=== PATIENT | female | born 1995 | race Caucasian/White ===

== ENCOUNTER 2017-07-30 12:48 | Emergency (ER) | payer MEDICAID, SELFPAY ==
[2017-07-30 12:48] VITALS: BP 135/76; PULSE 117; RESP 14; TEMP 36.7; O2SAT 99; BMI 31.2
--- NOTE | 2017-07-30 13:11 | ED.DCSUM_ITS ---
- ER Visit Summary Date of Service: 07/30/17 Chief Complaint: [Facial pain] History of Present Illness: The patient is a 22 F [presents with right-sided facial pain ?2 days. Patient denies any trauma. Patient states the pain is exacerbated by eating or chewing. Patient states that it is in her jaw and kind of radiates into her neck at times. She feels that in her mouth where the upper and lower teeth come together in the gingiva come together. Patient states she has had her wisdom teeth extracted. She has not had any fever. No rashes. Denies sore throat or ear pain.] Physical Examination: [HEENT-PERRLA, EOMI. Cranial nerves II through XII grossly intact. TMs clear. Mucous membranes moist. No adenopathy. No pharyngeal erythema. No trismus on exam. No real tenderness over her molars. Patient has some tenderness on palpation of the posterior gingiva at the angle where the upper pole and jaw comes together that seems to reproduce her pain. There is no erythema or fluctuance noted of the gingiva. There is no facial cellulitis. No adenopathy. No real tenderness over the parotid gland or sublingual gland. Cardiovascular-regular rate and rhythm without murmur or ectopy Lungs-clear to auscultation, chest wall stable without crepitus or subcu emphysema Abdomen-normoactive bowel sounds, soft, nontender, no rebound or rigidity, no peritoneal signs. Extremities-intact ?4, normal range of motion, normal pulses, atraumatic] Test Results: [None indicated] Emergency Department Course and Treatment: [Patient will be started clindamycin and [place] for pain] Treatment Plan: [Patient advised to follow-up with the dentist. Patient states that she called her dentist and she can get in for 2 months. I will give the patient a list of dentists in the area.] Disposition: [Discharged home in stable condition] Impression: [Facial pain-etiology uncertain] This note was generated with [employer] software. It may contain incorrect words, spelling, and punctuation that were not noted in review of the chart prior to signing ED Disposition - Plan for ED Patient: Chief Complaint: Other, Pain/Inj Referrals: Migdalia Holden MD [Primary Care Provider] -
--- NOTE | 2017-07-30 13:13 | DCINST.ED_ITS ---
ED Disposition - Plan for ED Patient: Chief Complaint: Other, Pain/Inj Instructions: ED Tooth Pain Prescriptions: Hydrocodone Bitart/Apap 5-325 [[place] 5/325] 1 - 2 tab PO Q4H PRN PRN 5 Days #20 tab PRN Reason: Pain Clindamycin HCl [Cleocin] 300 mg PO Q6H #40 cap Referrals: Migdalia Holden MD [Primary Care Provider] - 3-5 Days Additional Instructions: see a dentist
== END 2017-07-30 13:30 | disposition home or self-care (01) ==
PROVIDERS: Emergency Provider Emergency Medicine
DX: R51 Headache (principal); J45.909 Unspecified asthma, uncomplicated
CPT/HCPCS: 99282

== ENCOUNTER → 2017-09-14 14:31 | Outpatient (CLI) | payer MEDICAID, SELFPAY ==
[2017-09-21 15:51] LABS: HPV Reflexed? NOT INDICATED
== END ==
PROVIDERS: Visit Provider Obstetrics & Gynecology
DX: Z12.4 Encounter for screening for malignant neoplasm of cervix (principal)
CPT/HCPCS: 88175; G0145

== ENCOUNTER → 2018-01-18 16:49 | Outpatient (CLI) | payer MEDICAID, SELFPAY ==
[2018-01-25 14:40] LABS: HPV Reflexed? NOT INDICATED
== END ==
PROVIDERS: Visit Provider Obstetrics & Gynecology
DX: Z12.4 Encounter for screening for malignant neoplasm of cervix (principal)
CPT/HCPCS: 88175; G0145

== ENCOUNTER 2018-02-16 06:58 | Day surgery (SDC) | payer MEDICAID, SELFPAY ==
[2018-02-15 17:22] LABS: Hematocrit 40.1 % (37-47); Hemoglobin 12.7 g/dl (12.0-15.0); Mean Corp Hgb Conc 31.7 g/gl (32-36); Mean Corpuscular Hgb 24.7 pg (27.0-32.0); Mean Platelet Vol. 8.9 fl (6.2-12.0); Platelet Count 320 K/mm3 (150-450); RBC Distribution Width CV 13.5 % (11.6-14.6); RBC Distribution Width SD 38.1 fl (35.1-43.9); Red Blood Count 5.14 M/mm3 (4.2-5.4); White Blood Count 9.9 K/mm3 (4.4-11.0)
[2018-02-15 17:23] LABS: Partial Thromboplast Time 30.6 Seconds (24.1-36.2); Prothrombin Time (Protime)PT. 13.2 SECONDS (11.7-14.9)
[2018-02-15 17:33] LABS: Scan Indicated on CBC? Y/N NO
[2018-02-15 17:48] LABS: Pregnancy, Serum, hCG Quali. NEGATIVE Negative (0-9 Nonpreg)
--- NOTE | 2018-02-16 | FALS_PTH ---
PATIENT: CATRACHO FREED [place] [facility] [id number] AGE/SX: 22/F ROOM: RE02/16/[address]: Dr. Tristan El MD : 1995 BED: DIS: 02/16/2018 SPEC #: [id number] RECD: 02/16/18 14:55 STATUS: YELENA RESaumya #: [id number] MATEO: 02/16/18 00:[address]: Tristan El DEPT: SURGICAL PATHOLOGY RECD BY: Ariel Gómez ENTERED: 02/16/18 14:55 SP TYPE: FALL TUBES OTHR DR: No Primary Care Phys Tissues: Fallopian tube Procedures: Surgery Specimen Level II HEADER OPERATION: Laparoscopic salpingectomy, bilateral PRE-OP DIAGNOSIS: Request sterilization TISSUE SUBMITTED: Right and left fallopian tube MICROSCOPIC DIAGNOSIS Right and left fallopian tubes, salpingectomies: Two complete segments of fallopian tubes with no pathologic change. AM:kang 02/17/18 MICROSCOPIC DESCRIPTION Slides are reviewed. GROSS DESCRIPTION Received is one container labeled with the patient's name and designated bilateral fallopian tubes. The specimen consists of two tubular pieces of pink-hdz soft tissue with the right identified with a suture. The average length is 4.5 cm and average diameter is 0.5 cm. No mass lesion. The entire specimen is submitted in two cassettes as follows: 1 - one fallopian tube, 2 - the other fallopian tube. / AM:kang 02/16/18 TC: Samantha CPT: 62072 x2
[2018-02-16 07:23] VITALS: BP 117/76; PULSE 76; RESP 16; TEMP 36.8; O2SAT 99; BMI 33.4
--- NOTE | 2018-02-16 08:44 | DCINST_ITS ---
You will use the following diet at home:: No restrictions Your food should be the consistency of: Regular Discharge Activity: Return to Normal Activity, May Drive, May not drive while taking narcotic pain medications., May Shower Return to work on:: 02/21/18 May shower in (days): 0 May resume sexual activity in: 1-2 weeks Lifting Restrictions: 25 pounds for two weeks then no restrictions Call your doctor if your incision/area has: Sudden Increased Bleeding, Increased Pain/ Swelling, Increased Redness, Foul Smelling Discharge, Swelling at the incision site Call your doctor if you observe: Fever of 101 or Higher, Inability to urinate, Inability to have a bowel movement, Using more than one pad per hour, Shortness of breath, Chest pain, Calf discomfort, Uncontrolled pain Remove Dressing in (days):: 2 Cleanse incision/area with: Soap & Water Allergies/Adverse Reactions: Allergies amoxicillin Allergy (Verified 02/16/18 07:22) Rash clavulanic acid [From Augmentin] Allergy (Verified 02/16/18 07:22) Rash Penicillins Allergy (Verified 02/16/18 07:22) Rash vancomycin Allergy (Verified 02/16/18 07:22) Hives Medications to take at Discharge Albuterol IH (ProAir) [Proair Hfa] 2 puff INHALATION Q4H PRN PRN 05/28/16 Ibuprofen 600 mg PO 4X/DAY #30 tab 02/16/18 Oxycodone [Oxyir] 5 mg PO Q6H PRN PRN 7 Days #20 tab 02/16/18 The following prescriptions were given: Oxycodone [Oxyir] 5 mg PO Q6H PRN PRN 7 Days #20 tab PRN Reason: Severe Pain (6-01/12) Ibuprofen 600 mg PO 4X/DAY #30 tab Orders to be completed after discharge: ,Urine Time Frame: 02/16/18, Location: Laboratory Primary Care Physician: Care Physician,No Primary [Primary Care Provider] - Test Results: Test results from this visit will be discussed in further detail at your follow- up appointment, if applicable. Please Follow Up With: Tristan El MD When: one week Proposed Discharge Date: 02/16/18
[2018-02-16] MEDS: Bupivacaine Mpf 0.5% 30 ML VIAL (09:15)
--- NOTE | 2018-02-16 09:17 | PCM.OPRPT ---
Report of Operation Date of Procedure: 02/16/18 Pre-Operative Diagnosis: Requests permanent sterilization Post-Operative Diagnosis: Same Surgery/Procedure Performed:: Laparoscopic Bilateral Salpingectomy Description of Surgical Findings:: Normal appearing uterus, ovaries, and fallopian tubes. Normal appearing liver, gallbladder and stomach. Appendix not visualized. membership coordinator: None Type of Anesthesia:: General Anesthesiologist: Guru De Jesus Special Medications: none Specimen's removed: Right and left fallopian tubes Drains: none Estimated Blood Loss (mL): minimal Fluids Replaced: 1000cc LR Description of Procedure: Gloria reconfirmed desire for permanent sterilization prior to being taken to the OR. She was taken to the OR with IV running. She was given intravenous clindamycin and gentamicin for surgical prophylaxis prior to the procedure. General anesthesia was introduced without complication. SHe was then prepped and draped in the dorsal lithotomy position. A red rubber catheter was used to drain the bladder. A Cyndie uterine manipulator was placed. Attention was then directed to the abdomen. A 5 mm vertical incision was made in the lower base of the umbilicus. The underlying subcutaneous tissue was dissected down to the level of fascia with blunt dissection with a Magalie clamp. The abdominal wall was then elevated and a Veress needle was placed through the umbilical defect into the abdomen. The abdomen was then inflated with CO2 gas to a pressure o 15 Torr. The Veress needle was removed and a 5mm laparoscopic trocar and sleeve were placed. The trocar was removed and replaced with the laparoscope. Findings were as mentioned above. A second 5mm port was placed on the left side at the level of the umbilicus lateral to the inferior epigastric vessels. A laparoscopic mini alligator grasper was placed in the midline between the umbilicus and the pubic symphysis. Hemostasis was excellent after port placement, The Left fallopian tube was then grasped at the fimbriated e4nd and elevated. The mesosalpinx was then dissected from the distal end to the cornua of the uterus using the Ligasure device. The tube was then amputated at the cornua. The tube was removed through the left port. The right fallopian tube was then dissected in a similar manner. Hemostasis was ecellent after tubal removal. The ports were then removed and the alligator grasper removed. The CO2 gas was evaluated. The skin incisions were closed with a subcuticular stitch of 4-0 Monocryl suture. The port sites were injected with 0.5% Marcaine. The uterine manipulator was removed. SHe was reversed from anesthesia and taken to the recovery room in stable condition. Sponge, needle, and instrument counts were correct. Grafts/Implants Used: none - Complications none - Admit VTE Documentation VTE Present on Admission: No VTE Mechan Device Prophylaxis: SCD's VTE Pharm Prophylaxis ordered?: No
[2018-02-16 09:32] VITALS: BP 117/76; BP 122/74; PULSE 85; RESP 16; TEMP 36.9; O2SAT 94
[2018-02-16 09:45] VITALS: BP 109/64; BP 117/76; PULSE 74; RESP 16; O2SAT 98
[2018-02-16 10:00] VITALS: BP 111/65; BP 117/76; PULSE 71; RESP 16; TEMP 36.7; O2SAT 98
[2018-02-16 10:40] VITALS: BP 117/76; BP 99/66; PULSE 74; RESP 16; TEMP 36.7; O2SAT 100
== END 2018-02-16 11:02 | disposition home or self-care (01) ==
LOC: SDC 06:59 → AC 06:59
PROVIDERS: Referring Provider Obstetrics & Gynecology; Visit Provider Obstetrics & Gynecology
PROC: (CPT 58661; principal; 2018-02-16 08:15)
DX: Z30.2 Encounter for sterilization (principal); J45.909 Unspecified asthma, uncomplicated; K21.9 Gastro-esophageal reflux disease without esophagitis; F17.210 Nicotine dependence, cigarettes, uncomplicated
CPT/HCPCS: 00840; 58661; 36415; 84703; 85027; 85610; 85730; 86850; 86900; 88302; J7120; J2405

== ENCOUNTER 2018-05-23 10:14 | Emergency (ER) | payer MEDICAID, SELFPAY ==
[2018-05-23 10:15] VITALS: BP 132/79; PULSE 95; RESP 16; TEMP 36.7; O2SAT 98; BMI 34.5
--- NOTE | 2018-05-23 10:50 | ED.VISSUMM ---
- ER Visit Summary Date of Service: 05/23/18 Chief Complaint: Heavy vaginal bleeding History of Present Illness: The patient is a 22 F who presents for heavy vaginal bleeding and cramping since yesterday. Patient states that she thinks she is on her period, which started yesterday. She has been having very heavy bleeding, going through one tampon per hour. She feels like she is in labor with severe lower abdominal and lower back cramping. She is feeling dizzy when she stands up. Her last period was 1 month ago and was heavy, but not this heavy. She had her Nexplanon taken out in March and had bilateral salpingectomy. She denies any fever, urinary symptoms or other complaints at this time. Physical Examination: Vital signs: afebrile, hemodynamically stable, no hypoxia on room air General: well nourished, well developed, in no distress Skin: warm, dry, no rash, no pallor HEENT: normocephalic and atraumatic; PERRL, EOMI, moist mucous membranes Cardiovascular: regular rate and rhythm without murmurs, no peripheral edema, 2+ pulses all distal extremities Respiratory: No increased work of breathing, lungs are clear to auscultation bilaterally, no rales, rhonchi or wheezing Abdominal: Abdomen is soft, nontender with normoactive bowel sounds, no guarding or rebound, no masses no lower back tenderness, no pelvic tenderness MSK: Moves all extremities, no deformities, normal strength Neuro: Awake and alert, oriented ?4. No facial droop, sensation and motor function intact and symmetric Test Results: Abnormal Lab Results 05/23/18 05/23/18 10:55 10:55 WBC 8.9 RBC 4.96 Hgb 12.4 Hct 38.7 MCV 78.0 L MCH 25.0 L MCHC 32.0 RDW 13.2 RDW Differential 37.3 Plt Count 329 MPV 8.4 Immature Gran % (Auto) 0.200 Neut % (Auto) 59.5 Lymph % (Auto) 31.2 [place] % (Auto) 6.1 Eos % (Auto) 2.4 Baso % (Auto) 0.6 Absolute Neuts (auto) 5.3 Absolute Lymphs (auto) 2.78 Total Counted Not Reportable Serum , Qual NEGATIVE Medications Given Discontinued Medications Sodium Chloride () 1,000 mls @ 999 mls/hr IV .Q1H1M ONE Stop: 05/23/18 11:52 Last Admin: 05/23/18 11:17 Dose: 999 mls/hr Ketorolac Tromethamine (Toradol) 15 mg IV X1 ONE Stop: 05/23/18 10:50 Last Admin: 05/23/18 11:17 Dose: 15 mg Emergency Department Course and Treatment: Because patient is complaining of dizziness when standing up, she was given IV fluids. She was given Toradol for her cramping pain. was checked and was negative. CBC checked and patient had a normal hemoglobin, unchanged from her baseline compared to other labs. Pelvic exam performed, and it time, patient still had a tampon in. She removed it. On exam there was a scant amount of old blood noted at the cervical os. No cervical motion tenderness or adnexal masses. No vaginal lacerations or other lesions noted. Patient's heavy bleeding and cramping is most likely related to her normal menstrual period, as her body is reacclimate eating after having removal of the Nexplanon. Patient is to follow-up with her maintenance leader if she continues to have any concerns. Patient was discharged home in improved condition. Treatment Plan: [] Disposition: [] Impression: Dysmenorrhea This note was generated with [employer] dictation software. It may contain incorrect words, spelling, and punctuation that were not noted in review of the chart prior to signing ED Disposition - Plan for ED Patient: Disposition: Home or Assisted Living Instructions: ED Cramping Menstrual Referrals: Jignesh Gutierrez MD [Primary Care Provider] - Additional Instructions: Please follow-up with your maintenance leader if you continue to have concerns about your increased cramping and increased bleeding during her menstrual periods. Your is negative. Please continue to use [id number] medication as needed for cramping. If you have any worsening of your condition or any new concerning symptoms, please return immediately to the emergency department for another evaluation.
[2018-05-23 11:06] LABS: Absolute Lymphocyte Count 2.78 X10^3/ul (0.83-4.51); Absolute Neutrophil Count 5.3 X10^3/uL (2.0-7.7); Basophil# 0.05 X10^3/uL; Basophil% 0.6 % (0-1); Eosinophil# 0.21 X10^3/uL; Eosinophils% 2.4 % (0-5); Hematocrit 38.7 % (37-47); Hemoglobin 12.4 g/dl (12.0-15.0); Lymphocyte # 2.78 X10^3/ul (4.0); Lymphocyte % 31.2 % (19-41); Mean Platelet Vol. 8.4 fl (6.2-12.0); Monocyte# 0.54 X10^3/uL; Monocyte% 6.1 % (0-10); Neutrophil % 59.5 % (47-70); Platelet Count 329 K/mm3 (150-450); RBC Distribution Width CV 13.2 % (11.6-14.6); RBC Distribution Width SD 37.3 fl (35.1-43.9); Red Blood Count 4.96 M/mm3 (4.2-5.4); White Blood Count 8.9 K/mm3 (4.4-11.0)
[2018-05-23 11:10] LABS: POSITIVE COUNT NO; POSITIVE DIFFERENTIAL NO; POSITIVE MORPHOLOGY NO
[2018-05-23] MEDS: 0.9% Normal Saline 1,000 ML 999 ML IV (11:17)
[2018-05-23] MEDS: Ketorolac 15 MG/ML Vial IV (11:17)
[2018-05-23 11:44] LABS: Pregnancy, Serum, hCG Quali. NEGATIVE Negative (0-9 Nonpreg)
[2018-05-23 13:05] VITALS: PULSE 76; RESP 16; O2SAT 100
== END 2018-05-23 13:06 | disposition home or self-care (01) ==
PROVIDERS: Emergency Provider Emergency Medicine; Family Provider Family Medicine; PCP Family Medicine
DX: N94.6 Dysmenorrhea, unspecified (principal)
CPT/HCPCS: 84703; 85025; 96361; 96374; 99283; J7030

== ENCOUNTER → 2018-08-11 | Outpatient (CLI) | payer MEDICAID, SELFPAY ==
[2018-08-11 18:14] LABS: Chlamydia Trachomatis by PCR Negative (Negative); Neisserai gonorrhoeae by PCR Negative (Negative); Probe Check PASS; Sample Adequacy Control PASS; Specimen Processing Control PASS
== END | disposition home or self-care (01) ==
PROVIDERS: Visit Provider Obstetrics & Gynecology
DX: Z11.3 Encounter for screening for infections with a predominantly sexual mode of transmission (principal)
CPT/HCPCS: 87491; 87591

== ENCOUNTER → 2019-01-19 13:44 | Outpatient (CLI) | payer MEDICAID, SELFPAY ==
[2019-01-19 17:56] LABS: Chlamydia Trachomatis by PCR Negative (Negative); Neisserai gonorrhoeae by PCR Negative (Negative); Probe Check PASS; Sample Adequacy Control PASS; Specimen Processing Control PASS
[2019-01-24 14:46] LABS: HPV APTIMA, High Risk Negative (Negative)
[2019-01-24 15:06] LABS: HPV Reflexed? YES, CHARGE PATIENT
== END ==
PROVIDERS: Visit Provider Obstetrics & Gynecology
DX: Z12.4 Encounter for screening for malignant neoplasm of cervix (principal); Z11.3 Encounter for screening for infections with a predominantly sexual mode of transmission
CPT/HCPCS: 87491; 87591; 87624; 88175; G0145

== ENCOUNTER 2019-01-23 11:47 | Emergency (ER) | payer MEDICAID, SELFPAY ==
[2019-01-23 11:48] VITALS: BP 114/76; PULSE 84; RESP 16; TEMP 36.6; O2SAT 99; BMI 32.8
--- NOTE | 2019-01-23 12:00 | EKG12_ITS ---
Test Reason : CP/BACK PAIN Blood Pressure : / mmHG Vent. Rate : 052 BPM Atrial Rate : 052 BPM P-R Int : 122 ms QRS Dur : 090 ms QT Int : 400 ms P-R-T Axes : 031 061 068 degrees QTc Int : 372 ms Sinus bradycardia Otherwise normal ECG Confirmed by RUSSELL KUHN, CARLOS A ([id number]), copy editor DOMINGO PATTEN ([id number]) on 01/27/2019 10:29:15 AM Referred By: FLOR Confirmed By:CARLOS A WELLS MD
[2019-01-23 12:06] VITALS: BP 126/86; PULSE 57; RESP 23; O2SAT 100
--- NOTE | 2019-01-23 12:43 | RAD_ITS ---
STUDY: X-RAY CHEST REASON FOR EXAM: Female, 23 years old. Atypical chest pain and back pain. TECHNIQUE: AP and lateral views of the chest. COMPARISON: None. FINDINGS: EKG electrodes are seen. The lungs are clear and expanded. There is no demonstrated pleural abnormality. Normal size heart. Normal mediastinum and stephanie. Normal visualized pulmonary arteries. Normal visualized aortic arch and descending thoracic aorta. Normal visualized thoracic spine. Normal visualized ribs, clavicles, and shoulders. There is no demonstrated abnormality of the visualized soft tissue structures of the upper abdomen. RAD/Chest PA and Lateral IMPRESSION: Normal x-ray examination of the chest. Electronically Signed: Randal Ny, at 13:22 EDT , Service support ,
[2019-01-23] MEDS: diazePAM 5 MG Tablet 10 MG PO (13:16)
[2019-01-23] MEDS: Ketorolac 60 MG/2 ML Vial IM (13:17)
--- NOTE | 2019-01-23 13:19 | ED.DCSUM_ITS ---
- ER Visit Summary Date of Service: 01/23/19 Chief Complaint: Midthoracic back pain History of Present Illness: The patient is a 23 F past medical history of asthma and vocal cord dysfunction. Patient states around 230 this morning she woke up with back pain radiating her chest. She had a similar episode like this before was treated at [facility] for muscle spasms. No history of cardiac disease. No shortness of breath. No hemoptysis. No fever, chills or cough. No abdominal pain. No leg pain or swelling. Physical Examination: Young female no acute distress vital signs stable afebrile. Pulse ox on percent room air no signs of hypoxia. HEENT exam unremarkable. Neck nontender no lymphadenopathy. Lungs clear to auscultation bilaterally. Heart regular rhythm no murmur. Chest wall nontender. Abdomen soft nontender. Patient moving all 4 extremities. Neurovascular intact. Equal symmetrical radial pulses. Calves are nontender without edema or cords. Back exam she is reproducible thoracic and parathoracic bony and soft tissue tenderness consistent with musculoskeletal etiology. There is no redness or warmth. No signs of trauma or bruising. No bony deformity. Neurologically she is awake alert with no focal motor deficits. Test Results: EKG obtained by nursing staff shows a sinus bradycardia rate of 52 with no signs of MS or ischemia. Chest x-ray was performed shows normal cardiac silhouette mediastinum. There are 2 views read both by myself and the radiologist. Emergency Department Course and Treatment: Patient treated with p.o. Valium and IM Toradol. On repeat exam she is improving. We went over her test results. Treatment Plan: Motrin for pain. Valium for muscle relaxant. Shower warm bath. Massage to the area. Follow-up with not improving. Disposition: Discharge Impression: Parathoracic muscle spasm This note was generated with [email or web address] dictation software. It may contain incorrect words, spelling, and punctuation that were not noted in review of the chart prior to signing ED Disposition - Plan for ED Patient: Referrals: Jignesh Gutierrez MD [Primary Care Provider] -
--- NOTE | 2019-01-23 13:22 | ED.DEP ---
ED Disposition - Plan for ED Patient: Disposition: Home or Assisted Living Instructions: BACK SPASM, No Trauma Prescriptions: Diazepam [Valium] 5 mg PO 4X/DAY PRN PRN 7 Days #20 tab PRN Reason: Muscle Spasm Prescription Printed Referrals: Jignesh Gutierrez MD [Primary Care Provider] - 3-5 Days if not improving Additional Instructions: Valium for muscle spasms. Tylenol Motrin for pain. Hot shower warm bath and massage.
[2019-01-23 13:41] VITALS: BP 130/79; PULSE 66; RESP 15; O2SAT 100
== END 2019-01-23 13:42 | disposition home or self-care (01) ==
PROVIDERS: Emergency Provider Emergency Medicine; Family Provider Family Medicine; PCP Family Medicine
DX: M62.830 Muscle spasm of back (principal); M54.9 Dorsalgia, unspecified; J45.909 Unspecified asthma, uncomplicated; J38.3 Other diseases of vocal cords; Z72.0 Tobacco use
CPT/HCPCS: 71046; 93005; 96372; 99283

== ENCOUNTER 2019-03-15 09:02 | Emergency (ER) | payer BC, MEDICAID, SELFPAY ==
[2019-03-15 09:03] VITALS: BP 125/70; PULSE 99; RESP 17; TEMP 36.7; O2SAT 99; BMI 33.5
--- NOTE | 2019-03-15 09:30 | ED.VISSUMM ---
- ER Visit Summary Date of Service: 03/15/19 Chief Complaint: [] History of Present Illness: The patient is a 23 F [] Physical Examination: [] Test Results: [] Emergency Department Course and Treatment: [] Treatment Plan: [] Disposition: [] Impression: [] This note was generated with [employer] dictation software. It may contain incorrect words, spelling, and punctuation that were not noted in review of the chart prior to signing ED Disposition - Plan for ED Patient: Referrals: Jignesh Gutierrez MD [Primary Care Provider] -
--- NOTE | 2019-03-15 09:30 | ED.DEP ---
ED Disposition - Plan for ED Patient: Disposition: Home or Assisted Living Instructions: BACK SPASM, No Trauma Prescriptions: Diazepam [Valium] 5 mg PO Q6H PRN PRN #20 tab PRN Reason: Muscle Spasm Prescription Printed Referrals: Jignesh Gutierrez MD [Primary Care Provider] - 1 Week if not improving Additional Instructions: Hot shower, warm bath, massage. Tylenol and Motrin for pain. Valium as needed as a muscle relaxant. Do not drive or drink alcohol while using the Valium.
== END 2019-03-15 09:49 | disposition home or self-care (01) ==
LOC: ED 09:48
PROVIDERS: Emergency Provider Emergency Medicine; Family Provider Family Medicine; PCP Family Medicine
DX: M62.830 Muscle spasm of back (principal); M54.9 Dorsalgia, unspecified; J45.909 Unspecified asthma, uncomplicated; Z72.0 Tobacco use
CPT/HCPCS: 99281

== ENCOUNTER 2020-10-01 13:54 | Emergency (ER) | payer OTHER, MEDICAID, SELFPAY ==
[2020-10-01 13:55] VITALS: BP 117/72; PULSE 118; RESP 16; TEMP 37.1; O2SAT 98; BMI 36.8
--- NOTE | 2020-10-01 14:43 | ED.VIS.FEGU ---
HPI HPI - Female History of Present Illness Chief Complaint: Vag Bleeding Narrative Narrative: 25-year-old female presenting with pelvic cramping and spotting. She states that she started her menstrual cycle a week early. Patient has no nausea or vomiting. She has no breast pain. Patient previously had her fallopian tubes removed. She states I feel like I am having a miscarriage. Patient is status post salpingectomy bilaterally distantly. She states she is sexually active with a boyfriend. She called her cotton opener who stated she needed to go to the emergency room for an ultrasound and a test. Patient denies fever, chills, change in bowel habits, nausea, vomiting. PFSH PFSH Home Medications diazepam 5 mg PO Q6H PRN PRN #20 tab 03/15/19 [Rx Last Taken Unknown] Allergy/AdvReac Type Severity Reaction Status Date / Time amoxicillin Allergy Rash Verified 10/01/20 13:57 clavulanic acid Allergy Rash Verified 10/01/20 13:57 [From Augmentin] Penicillins Allergy Rash Verified 10/01/20 13:57 vancomycin Allergy Hives Verified 10/01/20 13:57 Surgical History History of salpingectomy Social History Smoking Status: Current every day smoker tobacco type: cigarettes ROS ROS ED Constitutional Constitutional ED: Denies fever(s) or subjective Eyes Eyes: Denies blurry vision or change in vision ENT ENT ED: Denies rhinorrhea or sore throat Cardiovascular Cardiovascular: Denies chest pain or palpitations Respiratory/Chest Respiratory/Chest: Denies cough or dyspnea Gastrointestinal Gastrointestinal: Reports abdominal pain; Denies constipation, diarrhea, nausea or vomiting Genitourinary Genitourinary ED: Denies dysuria or hematuria Musculoskeletal Musculoskeletal: Denies arthralgias or myalgias Integumentary Denies Abrasions or rash Neurologic Neurologic: Denies headache(s) or weakness Psychiatric Psychiatric: Denies anxiety or depression EXAM Physical Exam Const Vital Signs: 10/01/20 13:55 Temperature 98.8 F Temperature Source Temporal Pulse Rate 118 H Respiratory Rate 16 Blood Pressure 117/72 Blood Pressure Mean 87 Pulse Ox 98 Oxygen Delivery Method Room Air Positive well nourished General Appearance ED: NAD HEENT Reports moist mucous membranes Negative for trauma Eyes EOMs intact bilaterally Resp normal respiratory effort and clear to auscultation bilaterally Cardio regular rate and regular rhythm GI GI Narrative: Mild suprapubic tenderness. Abdomen nonperitoneal. no CVA tenderness Back/Spine no CVA tenderness Extremity normal to inspection and full ROM Neuro oriented x3 Sensorium / Orientation: alert Psych mental status grossly normal Skin no rashes or lesions noted and no wounds MDM MDM MDM Narrative Medical decision making narrative: Patient presents for evaluation as she has her menses 1 week early and she is having some cramping. She did call her cotton opener who told her to come to the ER for a test and ultrasound. Patient's test is negative. Her urinalysis shows some blood however she is on her menstrual cycle. She had a transvaginal ultrasound which was normal and showed no acute pathology. Patient likely having menstrual cramping. Patient will be discharged home in stable condition. Impression: 1. Menstrual cramping Lab Data Labs: Laboratory Results - last 24 hr 10/01/20 10/01/20 14:54 15:30 HCG, Quant < 1 Urine Color Yellow Urine Clarity Clear Urine pH 6.0 Ur Specific [place] 1.015 Urine Protein Negative Urine Glucose (UA) Normal Urine Ketones Negative Urine Occult Blood 150 H Urine Nitrite Negative Urine Bilirubin Negative Urine Urobilinogen Normal Ur Leukocyte Esterase Negative Urine RBC 0-5 SEEN Urine WBC 0 SEEN Ur Squamous Epith Cells 0-5 SEEN Urine Bacteria 0 SEEN Urine Mucus 0 SEEN Radiography Diagnostic Testing: Radiology Impression Transvaginal US 10/01/20 14:45 IMPRESSION: Normal transvaginal pelvic ultrasound. Electronically Signed: Reymundo Espinoza MD at 16:33 EDT Tel , Service support , Discharge Plan Triage Chief Complaint: Vag Bleeding ED Provider: Gm Guzmán Dx/Rx/DC Orders Instructions: ED MENSTRUAL CRAMPING Prescriptions: No Action diazepam 5 MG tablet 5 mg PO Q6H PRN PRN (Reason: Muscle Spasm) Qty: 20 RF: 0 Stand Alone Forms: ED Work / School Excuse Primary Care Provider: Jignesh Gutierrez Referrals: Jignesh Gutierrez MD [Primary Care Provider] - Disposition Disposition: Home, Self Care Discharge Date/Time: 10/01/20 16:58
--- NOTE | 2020-10-01 14:45 | US_ITS ---
STUDY: ULTRASOUND TRANSVAGINAL CLINICAL: Female, 25 years old. pelvic cramping-R/O TORSION TECHNIQUE: Transvaginal COMPARISON: None. FINDINGS: Normal uterine size measuring 8.4 x 5.2 x 4.3 cm in maximal craniocaudal dimension. There are no myometrial masses. Normal endometrial thickness measuring 8 mm. There are no endometrial masses, and there is no fluid in the endometrial cavity. Normal uterine cervix. Normal right ovary, measuring 2.9 x 1.0 x 1.5 cm. There are multiple follicles without a dominant cyst. Normal left ovary, measuring 2.3 x 1.4 x 1.4 cm. There are multiple follicles without a dominant cyst. There is no free fluid in the pelvis. Polycystic ovary disease: No. US/Transvaginal Non- IMPRESSION: Normal transvaginal pelvic ultrasound. Electronically Signed: Reymundo Espinoza MD at 16:33 EDT Tel , Service support ,
[2020-10-01 15:22] LABS: hCG Titer Quant., Serum < 1 mIU/mL (1-3)
[2020-10-01 15:38] LABS: Bacteria 0 SEEN /hpf (None Seen); Mucous, Urine 0 SEEN /hpf (<or=2+); White Blood Cells 0 SEEN /hpf (0-5)
[2020-10-01 15:48] LABS: Color, Urine Yellow (Yellow); Glucose, Dipstick Normal (Normal); Ketone-Dipstick Negative (Negative); Leukocyte Esterase-Dipstick Negative /ul (Negative); Nitrite-Dipstick Negative (Negative); Occult Blood-Urine 150 /ul (Negative); Protein-Dipstick Negative (Negative); Specific Gravity, Urine 1.015 (1.002-1.030); Urine Bilirubin Dipstick Negative (Negative); Urine Clarity Clear (Clear); Urine Urobilinogen Normal (Normal)
[2020-10-01 16:40] LABS: Squamous Epithelial Cells - UA 0-5 SEEN /hpf (5-10)
[2020-10-01 16:41] LABS: Red Blood Cells-Urine 0-5 SEEN /hpf (0-5)
== END 2020-10-01 16:58 | disposition home or self-care (01) ==
PROVIDERS: Emergency Provider Student in an Organized Health Care Education/Training Program; PCP Family Medicine
DX: N94.6 Dysmenorrhea, unspecified (principal); N93.9 Abnormal uterine and vaginal bleeding, unspecified; F17.210 Nicotine dependence, cigarettes, uncomplicated
CPT/HCPCS: 76830; 81001; 84702; 93976; 99282

== ENCOUNTER 2020-10-15 07:25 | Observation (INO) | payer OTHER, MEDICAID, SELFPAY ==
[2020-10-15 07:26] VITALS: BP 142/77; PULSE 65; RESP 18; TEMP 35.2; O2SAT 100; BMI 36.8
--- NOTE | 2020-10-15 07:55 | US_ITS ---
STUDY: ABDOMINAL ULTRASOUND - RIGHT UPPER QUADRANT REASON FOR VISIT: Female, 25 years old RUQ pain . Nausea and vomiting. TECHNIQUE: Ultrasound evaluation of the right upper quadrant was performed with real-time and static torres-scale imaging. TECHNICAL QUALITY: Adequate. COMPARISON: None. FINDINGS: Liver: The liver measures 14.7 cm. There is normal echogenicity of the liver. The bile ducts are within normal limits. There is hepatic color flow. The direction of portal flow is hepatopetal. There is no demonstrated mass lesion. Gallbladder: Normal distended gallbladder. The gallbladder wall is thickened and measures 4.5 mm. There is a positive sonographic Duarte''s sign. There is no pericholecystic fluid. There is a solitary echogenic gallstone within the gallbladder. The gallstone measures 1.1 cm. Common Bile Duct (C.B.D.): The common bile duct measures 2.6 mm. Pancreas: Normal size of the head, body pancreas. The tail portion is obscured due to overlying bowel gas. There is normal echogenicity of the pancreas. There is no demonstrated pancreatic mass or cyst. Right Kidney: Normal size of the right kidney. The right kidney measures 10.2 cm x 4.4 cm x 4.9 cm. Normal renal cortex. The right cortex measures 2.2 cm. There is no demonstrated renal mass or cyst. There is no right hydronephrosis. US/Gallbladder IMPRESSION: Solitary gallstone. Thickened gallbladder wall. Electronically Signed: Randal Ny MD at 9:01 EDT , Service support ,
--- NOTE | 2020-10-15 07:56 | ED.VIS.GI ---
HPI HPI - GI History of Present Illness Chief Complaint: Back Informant: patient Abdominal Pain/Flank Pain Onset: Today (3-4 hours) Context: Gradual Onset Timing: Continuous and Waxes and wanes Quality: Aching Location: - (Middle of back nonlateralizing, and into both flanks, and right upper quadrant) Current Severity: Severe Maximum Severity: Severe Worsened by: Movement (And deep inspiration) Relieved by: Nothing Nausea/Vomiting/Emesis GI Symptom: Positive for Nausea; Negative for Vomiting Diarrhea/Melena/Hematochezia GI Symptom: Negative for Diarrhea, Melena and Hematochezia Associated Symptoms Associated Symptoms: Negative for Dysuria, Frequency, Hematuria and Urgency Narrative Narrative: She woke up with this discomfort and then it progressively became worse. It is mainly in her back, but also in the sides of both rib cage bases, and her right upper quadrant. No recent alcohol use. Patient states she has had this before and they have not found anything. She has had testing in the emergency department but not outside of. She states she has had her gallbladder looked at before (labs), but has never had an ultrasound or a HIDA scan. She states she has been having episodes of this pain for 2 years or more. The last episode she had was 1 to 2 weeks ago. She last ate last night around 1900, she had a burrito from [facility] and started getting discomfort around 4 AM. She states as a result of this recurrent back pain, she has had x-rays, muscle relaxers that did not help, her doctor tried to get her scheduled for an MRI of her back, and refer her to physical therapy. PFSH PFSH no medical history Home Medications diazepam 5 mg PO Q6H PRN PRN #20 tab 03/15/19 [Rx Last Taken Unknown] Allergy/AdvReac Type Severity Reaction Status Date / Time amoxicillin Allergy Rash Verified 10/15/20 07:26 clavulanic acid Allergy Rash Verified 10/15/20 07:26 [From Augmentin] Penicillins Allergy Rash Verified 10/15/20 07:26 vancomycin Allergy Hives Verified 10/15/20 07:26 Surgical History History of salpingectomy Social History Smoking Status: Current every day smoker tobacco type: cigarettes ROS ROS ED Constitutional Constitutional ED: Denies chills or fever(s) Eyes Eyes: Denies change in vision or diplopia ENT ENT ED: Denies rhinorrhea or sore throat Cardiovascular Cardiovascular: Denies chest pain or palpitations Respiratory/Chest Respiratory/Chest: Denies cough or dyspnea Gastrointestinal Gastrointestinal: Reports as per HPI, abdominal pain and nausea; Denies diarrhea or vomiting Genitourinary Genitourinary ED: Denies dysuria or hematuria Musculoskeletal Musculoskeletal: Reports back pain; Denies neck pain Integumentary Denies abscess or rash Neurologic Neurologic: Denies headache(s), paresthesias or weakness Psychiatric Psychiatric: Denies anxiety or suicidal thoughts EXAM Physical Exam Const Vital Signs: 10/15/20 07:26 Temperature 95.3 F L Temperature Source Temporal Pulse Rate 65 Respiratory Rate 18 Blood Pressure 142/77 H Blood Pressure Mean 98 Pulse Ox 100 Oxygen Delivery Method Room Air Positive well nourished and well developed Constitutional Narrative: Mild acute painful distress General Appearance ED: well developed HEENT Reports moist mucous membranes normocephalic and atraumatic Eyes PERRL and EOMs intact bilaterally Neck full ROM and supple Resp normal respiratory effort and clear to auscultation bilaterally Cardio regular rate, regular rhythm and no murmurs GI non-distended Auscultation: normoactive bowel sounds Palpation: soft and tender epigastric (Mild), LUQ (Mild), RUQ (Moderate) and Duarte's sign; Negative for rebound tenderness present Back/Spine no CVA tenderness Back/Spine Narrative: Nontender throughout back General Back: other FROM Extremity normal to inspection General Extremety ED: Negative for edema, pulses abnormal or tenderness General Extremity: Negative for edema or pulses abnormal Neuro oriented x3, CN's II-XII intact bilaterally and no sensory deficits noted Sensorium / Orientation: awake and alert Motor Exam: strength 5/5 throughout Skin no rashes or lesions noted and no wounds MDM MDM MDM Narrative Medical decision making narrative: Patient was given Toradol and feels much better. On reexamination, however, she still is fairly tender in the right upper quadrant with a positive Duarte's. Ultrasound shows a solitary gallstone and a thickened gallbladder wall, no other radiographic signs of cholecystitis. Her lab work is normal with no leukocytosis. I think her back pain is due to biliary colic. This would explain her symptoms. Discussed with surgery on-call Dr. Hawley. Agrees patient has early signs of cholecystitis and offered to admit the patient if she is willing to undergo surgery tomorrow, which she is. Admitted to medical surgical, she has a allergy to penicillin so she was given a dose of cefepime. Lab Data Attestation: I reviewed the patient's lab results. Labs: Laboratory Results - last 24 hr 10/15/20 10/15/20 10/15/20 07:46 07:46 08:00 WBC 9.9 RBC 5.25 Hgb 12.3 Hct 40.1 MCV 76.4 L MCH 23.4 L MCHC 30.7 L RDW Std Deviation 35.1 RDW Coeff of Christy 12.9 Plt Count 351 MPV 9.3 Immature Gran % (Auto) 0.300 Neut % (Auto) 63.5 Lymph % (Auto) 27.8 Spink % (Auto) 5.6 Eos % (Auto) 2.3 Baso % (Auto) 0.5 Absolute Neuts (auto) 6.3 Absolute Lymphs (auto) 2.75 Nucleated RBC % 0 Sodium 138 Potassium 4.1 Chloride 109 H Carbon Dioxide 23.0 Anion Gap 6 BUN 17 Creatinine 0.67 Estim Creat Clear Calc 96.02 Est GFR (MDRD) Af Amer 137 Est GFR (MDRD) Non-Af 113 BUN/Creatinine Ratio 25.5 H Glucose 97 Calcium 8.9 Total Bilirubin 0.20 AST 16 ALT 22 Alkaline Phosphatase 75 Total Protein 7.5 Albumin 3.6 Globulin 3.9 Albumin/Globulin Ratio 0.9 Lipase 80 Urine Color Yellow Urine Clarity Clear Urine pH 5.0 Ur Specific [place] 1.030 Urine Protein Negative Urine Glucose (UA) Normal Urine Ketones Negative Urine Occult Blood Negative Urine Nitrite Negative Urine Bilirubin Negative Urine Urobilinogen Normal Ur Leukocyte Esterase 25 H Urine RBC 0 SEEN Urine WBC 0-5 SEEN Ur Squamous Epith Cells 0-5 SEEN Urine Bacteria 1+ Urine Mucus 0 SEEN Radiography Diagnostic Testing: Radiology Impression Gallbladder Ultrasound 10/15/20 07:55 IMPRESSION: Solitary gallstone. Thickened gallbladder wall. Electronically Signed: Randal Ny MD at 9:01 EDT , Service support , Discharge Plan Dx/Rx/DC Orders Clinical Impression: Acute calculous cholecystitis Disposition Disposition: Acute Care Hospital [facility]
[2020-10-15] MEDS: Ondansetron 4 MG/2 ML Vial IV (08:04)
[2020-10-15] MEDS: Ketorolac 30 MG/ML Syringe IV (08:04)
[2020-10-15 08:06] LABS: Absolute Lymphocyte Count 2.75 X10^3/uL (0.83-4.51); Absolute Neutrophil Count 6.3 X10^3/uL (2.0-7.7); Basophil# 0.05 X10^3/uL; Basophil% 0.5 % (0-1); Eosinophil# 0.23 X10^3/uL; Eosinophils% 2.3 % (0-5); Hematocrit 40.1 % (37-47); Hemoglobin 12.3 g/dL (12.0-15.0); Lymphocyte # 2.75 X10^3/ul (0.83-4.51); Lymphocyte % 27.8 % (19-41); Mean Corp Hgb Conc 30.7 g/dL (32-36); Mean Corpuscular Hgb 23.4 pg (27.0-32.0); Mean Corpuscular Volume 76.4 fL (81-99); Mean Platelet Vol. 9.3 fl (6.2-12.0); Monocyte# 0.55 X10^3/uL; Monocyte% 5.6 % (0-10); NRBC Flagged by Analyzer 0 % (0-5); Neutrophil # 6.28 X10^3/uL (2.7-7.7); Neutrophil % 63.5 % (47-70); Platelet Count 351 K/mm3 (150-450); RBC Distribution Width CV 12.9 % (11.6-14.6); RBC Distribution Width SD 35.1 fl (35.1-43.9); Red Blood Count 5.25 M/mm3 (4.2-5.4); White Blood Count 9.9 K/mm3 (4.4-11.0)
[2020-10-15 08:12] LABS: Mucous, Urine 0 SEEN /hpf (<or=2+); Red Blood Cells-Urine 0 SEEN /hpf (0-5)
[2020-10-15 08:18] LABS: ALB/GLOB Ratio 0.9 RATIO (0.9-2.4); AST(SGOT) 16 U/L (15-37); Alanine Aminotransfer ALT/SGPT 22 U/L (13-56); Albumin, Serum 3.6 g/dL (3.2-5.0); Alkaline Phosphatase 75 U/L (45-117); Anion Gap 6 (5-15); BUN 17 mg/dL (7-18); BUN/Creat Ratio 25.5 RATIO (10-20); Calcium,Total 8.9 mg/dL (8.5-10.1); Chloride 109 mmol/L (98-107); Creatinine, Serum 0.67 mg/dL (0.55-1.02); EST Glomerular Filtration Rate 113 mL/min (>60); Est Glom Filt Rate - Afr Amer 137 mL/min (>60); Estimated Creatinine Clearance 96.02 ml/min; Globulin 3.9 g/dL (2.2-4.2); Glucose 97 mg/dL (74-106); Lipase 80 U/L (73-393); Potassium 4.1 mmol/L (3.5-5.1); Protein, Total 7.5 g/dL (6.4-8.2); Sodium Level 138 mmol/L (136-145)
[2020-10-15 08:18] LABS: Color, Urine Yellow (Yellow); Glucose, Dipstick Normal (Normal); Ketone-Dipstick Negative (Negative); Leukocyte Esterase-Dipstick 25 /ul (Negative); Nitrite-Dipstick Negative (Negative); Occult Blood-Urine Negative /ul (Negative); Protein-Dipstick Negative (Negative); Urine Bilirubin Dipstick Negative (Negative); Urine Clarity Clear (Clear); Urine Urobilinogen Normal (Normal)
[2020-10-15 08:32] LABS: Bacteria 1+ /hpf (None Seen); Squamous Epithelial Cells - UA 0-5 SEEN /hpf (5-10); White Blood Cells 0-5 SEEN /hpf (0-5)
--- NOTE | 2020-10-15 09:56 | NURSING ---
MED SURG [facility] ACUTE CHOLECYSTITIS
[2020-10-15 10:14] VITALS: BP 125/72; PULSE 74; RESP 18; TEMP 36.6; O2SAT 99
[2020-10-15] MEDS: 0.9% Normal Saline 1,000 ML 125 ML IV ×2 (11:00→19:52)
[2020-10-15 11:15] VITALS: BMI 36.0
[2020-10-15 11:21] VITALS: BP 111/72; PULSE 84; RESP 16; TEMP 36.6; O2SAT 99
--- NOTE | 2020-10-15 11:35 | HP.PCM.SX_ITS ---
HPI - General General Date of Admission: 10/15/20 HPI Narrative CATRACHO FREED, is a 25 F who presents with right-sided pain. Patient reports he has been having this pain for upwards of 2 years. She is in the pain starts on the right side of her back and sometimes radiates around her ribs to the right abdomen. Is also accompanied with nausea. She said she awoke this morning at 4 AM with more severe pain than normal and nausea. Patient does not have any fever or chills. PFSH Home Medications diazepam 5 mg PO Q6H PRN PRN #20 tab 03/15/19 [Rx Last Taken Unknown] Allergy/AdvReac Type Severity Reaction Status Date / Time amoxicillin Allergy Rash Verified 10/15/20 07:26 clavulanic acid Allergy Rash Verified 10/15/20 07:26 [From Augmentin] Penicillins Allergy Rash Verified 10/15/20 07:26 vancomycin Allergy Hives Verified 10/15/20 07:26 no significant family history Surgical History History of salpingectomy Social History Smoking Status: Current every day smoker tobacco type: cigarettes ROS Constitutional Constitutional: Denies anorexia or chills Eyes Eyes: Denies blurry vision ENT HEENT: Denies abnormal hearing Cardiovascular Cardiovascular: Denies chest pain Respiratory/Chest Respiratory/Chest: Denies cough or dyspnea Gastrointestinal Gastrointestinal: Reports abdominal pain and nausea; Denies change in bowel habits, constipation, diarrhea, hematochezia, melena or vomiting Genitourinary Genitourinary: Denies change in urinary stream Musculoskeletal Musculoskeletal: Reports back pain; Denies abnormal gait Integumentary Integumentary: Denies jaundice Neurologic Neurologic: Denies abnormal gait Endocrine Endocrinology: Denies flushing Hematologic/Lymphatic Hematologic/Lymphatic: Denies easy bleeding Vital Signs Vital Signs Vital Signs: 10/15/20 07:26 10/15/20 10:14 10/15/20 11:21 Temperature 95.3 F L 97.9 F 97.9 F Temperature Source Temporal Temporal Oral Pulse Rate 65 74 84 Respiratory Rate 18 18 16 Blood Pressure 142/77 H 125/72 H 111/72 Blood Pressure Mean 98 89 85 Blood Pressure Source Monitor Blood Pressure Position Semi-Fowlers Blood Pressure Location Left Arm Pulse Ox 100 99 99 Oxygen Delivery Method Room Air Room Air Room Air Weight Weight: 190 lb 14.052 oz Body Mass Index (BMI) 36.0 Physical Exam Const oriented x3 and no apparent distress Resp normal respiratory effort Cardio regular rate and regular rhythm Results Lab / Micro Data Result Diagrams: 10/15/20 07:46 10/15/20 07:46 Labs: Laboratory Results - last 24 hr 10/15/20 07:46: WBC 9.9, RBC 5.25, Hgb 12.3, Hct 40.1, MCV 76.4 L, MCH 23.4 L, MCHC 30.7 L, RDW Std Deviation 35.1, RDW Coeff of Christy 12.9, Plt Count 351, MPV 9.3, Immature Gran % (Auto) 0.300, Neut % (Auto) 63.5, Lymph % (Auto) 27.8, [place] % (Auto) 5.6, Eos % (Auto) 2.3, Baso % (Auto) 0.5, Absolute Neuts (auto) 6.3, Absolute Lymphs (auto) 2.75, Nucleated RBC % 0 10/15/20 07:46: Sodium 138, Potassium 4.1, Chloride 109 H, Carbon Dioxide 23.0, Anion Gap 6, BUN 17, Creatinine 0.67, Estim Creat Clear Calc 96.02, Est GFR (MDRD) Af Amer 137, Est GFR (MDRD) Non-Af 113, BUN/Creatinine Ratio 25.5 H, Glucose 97, Calcium 8.9, Total Bilirubin 0.20, AST 16, ALT 22, Alkaline Phosphatase 75, Total Protein 7.5, Albumin 3.6, Globulin 3.9, Albumin/Globulin Ratio 0.9, Lipase 80 10/15/20 08:00: Urine Color Yellow, Urine Clarity Clear, Urine pH 5.0, Ur Specific [place] 1.030, Urine Protein Negative, Urine Glucose (UA) Normal, Urine Ketones Negative, Urine Occult Blood Negative, Urine Nitrite Negative, Urine Bilirubin Negative, Urine Urobilinogen Normal, Ur Leukocyte Esterase 25 H, Urine RBC 0 SEEN, Urine WBC 0-5 SEEN, Ur Squamous Epith Cells 0-5 SEEN, Urine Bacteria 1+, Urine Mucus 0 SEEN Radiology Impression Gallbladder Ultrasound 10/15/20 07:55 IMPRESSION: Solitary gallstone. Thickened gallbladder wall. Electronically Signed: Randal Ny MD at 9:01 EDT , Service support , Assessment & Plan Assessment/Plan (1) Acute calculous cholecystitis: PLAN: Patient has been experiencing right-sided back pain radiating to the right upper abdomen for over a year. Patient was awoken this morning with more severe pain and nausea. Ultrasound showed solitary gallstone with thickened gallbladder wall. Patient likely has acute cholecystitis. I discussed her findings with her and I discussed laparoscopic cholecystectomy. I discussed the procedure in detail with the patient. I discussed the risks, benefits, and alternatives of the procedure. I discussed the risks including but not limited to bleeding, infection, injury to surrounding organs such as the liver, bile duct, bowels. I did discuss the possibility of having to convert to an open procedure as well as the possibility that if any injuries occurred this may necessitate further surgery at a tertiary care center. I will admit the patient to the floor and started on antibiotics. Patient will have clear liquids today and n.p.o. after midnight. Plan for laparoscopic cholecystectomy with cholangiogram tomorrow afternoon. Pete Hawley MD Pager: [facility] [address] [place] [address], [address] [place] [address] Office:
[2020-10-15] MEDS: Morphine 2 MG/ML Syringe IV ×3 (13:43→19:58)
[2020-10-15] MEDS: metroNIDAZOLE 500 MG/100 ML BAG 100 MG IV ×2 (13:44→22:28)
[2020-10-15 14:44] VITALS: BP 125/83; PULSE 68; RESP 16; TEMP 36.6; O2SAT 100
[2020-10-15] MEDS: Acetaminophen 325 MG Tablet 650 MG PO (14:49)
[2020-10-15] MEDS: 0.9% Saline Lock 10 ML Syringe IV ×2 (14:50→19:58)
[2020-10-15 15:29] LABS: Internal QC Validated? YES +Cl - CLEAR BKGD; Pregnancy, Urine Negative Negative
[2020-10-15] MEDS: Ketorolac 15 MG/ML Vial IV (17:04)
[2020-10-15] MEDS: Ciprofloxacin 400 MG/200 ML BAG 200 MG IV (20:58)
[2020-10-15 21:02] VITALS: BP 103/58; PULSE 82; RESP 18; TEMP 36.8; O2SAT 98
[2020-10-16] VITALS (13 sets, daily range): BP systolic 102–142; BP diastolic 58–97; PULSE 51–88; RESP 16–18; TEMP 36.2–37.2; O2SAT 93–100; BMI 37.5
[2020-10-16] MEDS: 0.9% Saline Lock 10 ML Syringe IV ×4 (02:55→21:54)
[2020-10-16] MEDS: Ketorolac 15 MG/ML Vial IV (02:55)
[2020-10-16] MEDS: 0.9% Normal Saline 1,000 ML 125 ML IV ×2 (05:27→17:38)
[2020-10-16] MEDS: metroNIDAZOLE 500 MG/100 ML BAG 100 MG IV (05:27)
--- NOTE | 2020-10-16 05:55 | EKG12_ITS ---
Test Reason : PRE-OP Blood Pressure : / mmHG Vent. Rate : 067 BPM Atrial Rate : 067 BPM P-R Int : 146 ms QRS Dur : 086 ms QT Int : 406 ms P-R-T Axes : 030 069 075 degrees QTc Int : 429 ms Normal sinus rhythm Normal ECG Confirmed by GIOVANNI KUHN, DALILA ([id number]), videotape editor PAO WEBB ([id number]) on 10/17/2020 9:09:20 AM Referred By: DR SALMERON Confirmed By:DALILA DAVILA MD
[2020-10-16 07:15] LABS: Absolute Lymphocyte Count 2.15 X10^3/uL (0.83-4.51); Absolute Neutrophil Count 3.6 X10^3/uL (2.0-7.7); Basophil# 0.05 X10^3/uL; Basophil% 0.8 % (0-1); Eosinophil# 0.17 X10^3/uL; Eosinophils% 2.7 % (0-5); Hematocrit 32.2 % (37-47); Hemoglobin 9.6 g/dL (12.0-15.0); Lymphocyte # 2.15 X10^3/ul (0.83-4.51); Mean Corp Hgb Conc 29.8 g/dL (32-36); Mean Corpuscular Volume 77.2 fL (81-99); Mean Platelet Vol. 8.8 fl (6.2-12.0); Monocyte# 0.34 X10^3/uL; Monocyte% 5.4 % (0-10); NRBC Flagged by Analyzer 0 % (0-5); Neutrophil # 3.61 X10^3/uL (2.7-7.7); Neutrophil % 56.9 % (47-70); Platelet Count 256 K/mm3 (150-450); RBC Distribution Width CV 13.1 % (11.6-14.6); Red Blood Count 4.17 M/mm3 (4.2-5.4); White Blood Count 6.3 K/mm3 (4.4-11.0)
[2020-10-16 07:47] LABS: Anion Gap 6 (5-15); BUN 8 mg/dL (7-18); BUN/Creat Ratio 16.6 RATIO (10-20); Calcium,Total 7.4 mg/dL (8.5-10.1); Chloride 111 mmol/L (98-107); Creatinine, Serum 0.48 mg/dL (0.55-1.02); EST Glomerular Filtration Rate 165 mL/min (>60); Est Glom Filt Rate - Afr Amer 199 mL/min (>60); Estimated Creatinine Clearance 134.02 ml/min; Glucose 88 mg/dL (74-106); Potassium 3.6 mmol/L (3.5-5.1); Sodium Level 140 mmol/L (136-145)
[2020-10-16] MEDS: Morphine 2 MG/ML Syringe IV ×3 (08:00→21:53)
[2020-10-16] MEDS: Ciprofloxacin 400 MG/200 ML BAG 200 MG IV (09:57)
--- NOTE | 2020-10-16 11:40 | NURSING ---
to or via bed
--- NOTE | 2020-10-16 13:10 | GALL_PTH ---
PATIENT: CATRACHO FREED LOC: [facility]3 U#:[id number] AGE/SX: 25/F ROOM: MS315 RE10/15/[address]: Dr. Pete Hawley MD : 1995 BED: 1 DIS: 10/17/2020 SPEC #: [id number] RECD: 10/16/20 14:25 STATUS: YEELNA GONZALEZ #: [id number] MATEO: 10/16/20 13:[address]: Pete Hawley DEPT: SURGICAL PATHOLOGY RECD BY: Sanna Landaverde ENTERED: 10/17/20 08:22 SP TYPE: NEELAM DHALIWAL DR: Dr. Jignesh Gutierrez MD Tissues: Gallbladder, NOS Procedures: Surgery Specimen Level III HEADER OPERATION: Laparoscopic cholecystectomy with IOC PRE-OP DIAGNOSIS: Acute calculus cholecystitis TISSUE SUBMITTED: Gallbladder MICROSCOPIC DIAGNOSIS Gallbladder, cholecystectomy: Acute and chronic cholecystitis, cholelithiasis and cholesterolosis. SJ:tyrone 10/18/2020 MICROSCOPIC DESCRIPTION Slides are reviewed. GROSS DESCRIPTION Received is one container labeled with the patient's name and designated gallbladder. The specimen consists of a gallbladder measuring 9.5 cm in length and up to 2.5 cm in diameter. The external surface is pink-hdz, smooth and glistening for the most part. Focally it is granular, hemorrhagic and contains cautery artifact. A piece of liver tissue is attached at the fundus of the gallbladder measuring 3 x 0.5 x 0.5 cm. The gallbladder contains green-yellow mucoid bile and two mulberry, greenish-yellow stones measuring in aggregate 3 x 2 x 1.2 cm and 1.5 to 1.8 cm in greatest dimension. The mucosa is bile-stained and without any mass lesions. The gallbladder wall measures up to 0.5 cm in thickness. The adherent liver tissue is serially sectioned. Discount Clerk sections are submitted in two cassettes as follows: 1 - gallbladder and the cystic duct, 2 ? liver tissue, entirely submitted. / BLACK:tyrone 10/17/20 TC:2 CPT: 29317
--- NOTE | 2020-10-16 13:38 | RAD_ITS ---
STUDY: INTRAOPERATIVE CHOLANGIOGRAM. REASON FOR EXAM: Female, 25 years old. Pain, IOC FLUOROSCOPY TIME (if supplied): ( 7.1 seconds ) minutes/seconds. A cine loop of 43 images were submitted. TECHNIQUE: An intraoperative Cholangiogram was performed by the surgeon. Imaging was submitted. COMPARISON: None. FINDINGS: The visualized intrahepatic biliary ducts are unremarkable. The common bile duct is not dilated. No intraluminal filling defect is seen. There is free flow of contrast into the duodenum. RAD/Cholangiogram/ O R,Initial IMPRESSION: Unremarkable intraoperative cholangiogram. Electronically Signed: Randal Ny MD at 15:22 EDT , Service support ,
[2020-10-16] MEDS: Bupivacaine 0.25% 30 ML Vial (14:27)
--- NOTE | 2020-10-16 16:56 | OP.PCM_ITS ---
Problems Associated Problem List Diagnoses (1) Acute calculous cholecystitis: Report of Operation Date of Procedure: 10/16/20 Pre-Operative Diagnosis: Acute cholecystitis Post-Operative Diagnosis: Same Surgery/Procedure Performed:: Laparoscopic cholecystectomy with cholangiogram Specimen's removed: Gallbladder and contents Description of Procedure: After obtaining informed consent patient was brought back to the operating room. General anesthesia was induced. The abdomen was prepped and draped in usual sterile fashion. A small midline incision was made superior to the umbilicus and deepened to the level of fascia. The fascia was elevated and incised. Next the peritoneum was elevated and incised in the same fashion. Finger sweep was performed and the Alcocer trocar was placed into the abdomen. The balloon was inflated. The abdomen was inflated to 15 mmHg. Next a camera was introduced into the abdomen and the abdomen was inspected. Next und er direct visualization three 5-mm ports were placed one subxiphoid and 2 subcostal. Next the gallbladder was elevated and retracted toward the right shoulder. The peritoneum was stripped from the gallbladder. The infundibulum was located and retracted laterally. Next the triangle of Calot was dissected and the cystic duct and cystic artery were identified. Cholangiograms were performed. The Cao clamp was used to clamp across the infundibulum and the catheter needle was inserted into the gallbladder. Under fluoroscopy contrast was instilled into the gallbladder and the common duct, cystic duct as well as proximal hepatic ducts were identified. There was good filling of the duodenum. There were no filling defects noted in the common bile duct. The clamp was removed as well as the needle and the infundibulum was grasped once more. Three hemolock clips were placed across the cystic duct. The cystic duct was then divided leaving 2 clips on the stump. The cystic artery was clipped and divided in the same fashion. The hook cautery was then used to take the gallbladder off of the gallbladder bed. Hemostasis was obtained. Gallbladder fossa was irrigated and no active bleeding or bile leakage was noted. Next the camera was introduced in the subxiphoid port. An Endopouch bag was placed through the umbilical port and the gallbladder was placed into it. The gallbladder was then removed through the umbilical incision. The camera was then reinserted through the umbilical port. The gallbladder fossa was irrigated and hemostasis was obtained using argon beam cauterization. Surgicel powder was then sprayed into the gallbladder fossa. The gallbladder fossa was inspected once more and noted to be hemostatic with no leaking bile. The abdomen was suctioned dry. The 5 mm ports were removed under direct visualization. The umbilical port was then removed and the air was removed from the abdomen. Next using an 0 Vicryl suture the umbilical fascia was closed in a [id number] fashion. The umbilical port site was irrigated local anesthetic was administered to all the incisions. All the incisions were closed with interrupted subcuticular 4-0 Monocryl sutures followed by Steri-Strips and dressings. The patient was awoken and taken to PACU in stable condition. Admit VTE Documentation VTE Mechan Device Prophylaxis: SCD's
[2020-10-16] MEDS: oxyCODONE 5 MG Tablet PO (17:38)
[2020-10-16] MEDS: Ondansetron 4 MG/2 ML Vial IV (20:34)
[2020-10-17 01:48] VITALS: BP 121/68; PULSE 50; RESP 16; TEMP 36.9; O2SAT 96
[2020-10-17] MEDS: 0.9% Normal Saline 1,000 ML 125 ML IV (01:48)
[2020-10-17] MEDS: Morphine 2 MG/ML Syringe IV (03:56)
[2020-10-17] MEDS: 0.9% Saline Lock 10 ML Syringe IV (03:57)
[2020-10-17 05:38] VITALS: BP 118/73; PULSE 48; RESP 16; TEMP 36.9; O2SAT 97
--- NOTE | 2020-10-17 07:44 | PCM.PN.SRG ---
Subjective Subjective Patient reports she is still sore in the right upper quadrant. She did tolerate some regular food last evening with no nausea Objective Data Objective Data Vital Signs: Vital Signs Temp Pulse Resp BP Pulse Ox 98.5 F 48 L 16 118/73 97 10/17/20 05:38 10/17/20 05:38 10/17/20 05:38 10/17/20 05:38 10/17/20 05:38 Oxygen Flow Rate (L/min) 2 Oxygen Delivery Method Room Air Weight: 198 lb 10.184 oz Body Mass Index (BMI) 37.5 Intake & Output: Intake and Output for Last 24 Hours 10/15/20 10/16/20 10/17/20 23:59 23:59 23:59 Intake Total 1652.08 / 1952.08 2767.92 / 2767.92 1300 / 1300 Output Total 450 / 450 Balance 1652.08 / 1952.08 2317.92 / 2317.92 1300 / 1300 Lab / Micro Data Result Diagrams: 10/16/20 06:12 10/16/20 06:12 Labs: Laboratory Results - last 24 hr 10/16/20 06:12: Sodium 140, Potassium 3.6, Chloride 111 H, Carbon Dioxide 23.0, Anion Gap 6, BUN 8, Creatinine 0.48 L, Estim Creat Clear Calc 134.02, Est GFR (MDRD) Af Amer 199, Est GFR (MDRD) Non-Af 165, BUN/Creatinine Ratio 16.6, Glucose 88, Calcium 7.4 L Micro: Microbiology 10/15/20 13:50 Mucosa - Nose SARS-CoV-2 Antigen (Rapid) - Final Physical Exam Const oriented x3 and no apparent distress Resp normal respiratory effort GI soft to palpation Palpation: tender RUQ Assessment & Plan Assessment/Plan (1) Acute calculous cholecystitis: PLAN: Patient is still having tenderness but she will start oral pain medications today and she is on a regular diet. If she tolerates regular diet and tolerates p.o. pain medication she may be discharged home later today.
[2020-10-17 07:49] VITALS: BP 120/73; PULSE 64; RESP 18; TEMP 36.8; O2SAT 99
--- NOTE | 2020-10-17 07:57 | PCM.DC.SUM ---
Providers Date of Admission: 10/15/20 Primary Care Physician: Dr. Jignesh Gutierrez MD Reason For Visit: ACUTE CHOLECYSTITIS Diagnosis Discharge Diagnosis (1) Acute calculous cholecystitis: Status: Acute Code(s): K80.00 - Calculus of gallbladder with acute cholecystitis without obstruction Medications at Discharge Home Medications diazepam 5 mg PO Q6H PRN PRN #20 tab 03/15/19 acetaminophen [Tylenol] 650 mg PO Q4H PRN PRN #0 tab 10/17/20 oxycodone 5 - 10 mg PO Q4H PRN PRN 5 Days #30 tab 10/17/20 Hospital Course Operations cholecystecomy Procedures None Weight / BMI Weight Weight: 198 lb 10.184 oz Body Mass Index (BMI) 37.5 ABG / Lab / Microbiology Data Result Diagrams: 10/16/20 06:12 10/16/20 06:12 Microbiology: Microbiology 10/15/20 13:50 Mucosa - Nose SARS-CoV-2 Antigen (Rapid) - Final D/C Instructions Discharge Diet: Light diet - advance as tolerated Discharge Activity: May Not Drive (for 2-3 days or while taking narcotic pain medications.) and - (Do not drive, work heavy equipment or sign legal documents for 24 hours.) May shower in (days): 1 Lifting Restrictions: 20 lbs for 2 weeks Additional Activity Instructions: Pain medication may cause nausea. You should typically eat light foods as you take your pain medications. Pain medication may also cause constipation. If this is a problem for you, please discuss with your doctor. Call your doctor if your incision/area has: Continuous Slow Oozing, Sudden Increased Bleeding, Increased Pain/ Swelling, Increased Redness and Foul Smelling Discharge Call your doctor if you observe: Fever of 101 or Higher Suture Line Care: Avoid Pulling/Pushing and Avoid Pinching/Bending Cleanse incision/area with: Soap & Water Additional Dressing/Incision Instructions: Leave operative bandaids on for 2 days. When you remove dressing, leave Steri-Strips on until your follow-up appointment, or until the Steri-Strips fall off on their own. Please Follow Up With: Pete Hawley MD When: Please call to schedule 2 week follow up appointment. [phone] Meaningful Use Info Meaningful Use Diagnoses (Choose all that apply): None applicable Discharge Plan Admission Admit Date/Time: 10/15/20 10:06 Attending Provider: Pete Hawley Primary Care Provider: Jignesh Gutierrez Discharge Orders/Prescriptions Prescriptions: New acetaminophen [Tylenol] 325 mg Tablet 650 mg PO Q4H PRN PRN (Reason: P/F) Qty: 0 RF: 0 oxycodone 5 mg Tablet 5 - 10 mg PO Q4H PRN PRN (Reason: Pain Score 4-10) 5 Days Qty: 30 RF: 0 Continued diazepam 5 MG tablet 5 mg PO Q6H PRN PRN (Reason: Muscle Spasm) Qty: 20 RF: 0 Referrals / Follow Up: Jignesh Gutierrez MD [Primary Care Provider] - Disposition Disposition (needs filled in before D/C Order can be placed): Home, Self Care
[2020-10-17] MEDS: oxyCODONE 5 MG Tablet PO ×2 (08:15→12:16)
[2020-10-17 10:37] VITALS: PULSE 62; O2SAT 99
[2020-10-17] MEDS: Acetaminophen 325 MG Tablet 650 MG PO ×2 (11:16→15:21)
[2020-10-17 13:46] VITALS: BP 108/69; PULSE 70; RESP 16; TEMP 36.9; O2SAT 98
[2020-10-17] MEDS: Polyethylene Glycol 3350 17 GM PACKET PO (15:21)
--- NOTE | 2020-10-17 16:08 | NURSING ---
This RN reviewed SN charting
== END 2020-10-17 16:25 | disposition home or self-care (01) ==
LOC: ED 09:48 → PCU 10:03 → MS3 10-17 08:00
PROVIDERS: Admitting Provider Surgery; Emergency Provider Emergency Medicine; PCP Family Medicine; Visit Provider Surgery
PROC: (CPT 47610; principal; 2020-10-16 12:50)
DX: K80.12 Calculus of gallbladder with acute and chronic cholecystitis without obstruction (principal); F17.210 Nicotine dependence, cigarettes, uncomplicated
CPT/HCPCS: 00790; 47563; 36415; 74300; 76000; 76705; 80048; 80053; 81001; 81025; 83690; 85025; 87426; 88304; 93005; 96361; 96365; 96366; 96367; 96375; 96376; 99218; 99251; 99284; J7030; J7120; A4216; G0378; G0463; J0744; J2405

== ENCOUNTER 2020-10-24 03:07 | Inpatient (IN) | payer OTHER, MEDICAID, SELFPAY ==
[2020-10-16 11:25] VITALS: BMI 37.5
[2020-10-24] VITALS (7 sets, daily range): BP systolic 99–118; BP diastolic 60–82; PULSE 66–105; RESP 14–18; TEMP 36.4–37.1; O2SAT 96–100; BMI 36.6; BMI 35.9
--- NOTE | 2020-10-24 03:19 | EKG12_ITS ---
Test Reason : DYSRHYTHMIA Blood Pressure : / mmHG Vent. Rate : 087 BPM Atrial Rate : 087 BPM P-R Int : 160 ms QRS Dur : 090 ms QT Int : 380 ms P-R-T Axes : 057 058 038 degrees QTc Int : 457 ms Normal sinus rhythm Normal ECG Confirmed by GIOVANNI KUHN, DALILA ([id number]), brands editor PAO WEBB ([id number]) on 10/25/2020 10:15:07 AM Referred By: MANJIT Confirmed By:DALILA DAVILA MD
--- NOTE | 2020-10-24 03:19 | CT_ITS ---
HISTORY: Recent gallbladder surgery. Woke up with abdomen pain and pain up right side of neck. TECHNIQUE: Helically acquired images were obtained of the chest, abdomen, and pelvis following IV contrast. CT angiogram pulmonary embolism protocol utilized for imaging of chest, with MIP and MPR reconstructions. A radiation dose optimization technique was used for this scan. IV Contrast dosage and agent: 100mL Isovue-370 Oral contrast: None. COMPARISON: None FINDINGS: ----Chest: HEART AND PERICARDIUM: Heart size within normal limits. No significant pericardial effusion. VESSELS: Thoracic aorta is not dilated. There is no aortic dissection. Great vessels are patent. No pulmonary arterial filling defects identified. MEDIASTINUM AND VIOLA: No pathologically enlarged mediastinal or hilar lymph nodes. Esophagus is unremarkable. OTHER SOFT TISSUES: Included thyroid gland is unremarkable. No chest wall mass or significant soft tissue swelling. LUNGS AND LARGE AIRWAYS: Mild bilateral lower lobe atelectatic changes. No pulmonary edema or mass. No pneumothorax. PLEURA: No pleural effusion or pleural thickening. BONES: Intact with no suspicious osseous lesion. ----Abdomen/Pelvis: LIVER: Homogeneous. No concerning lesion. GALLBLADDER AND BILIARY TREE: Small amount of ill-defined low attenuation fluid and couple of punctate foci of gas within the gallbladder fossa, status post recent cholecystectomy. No intra- or extrahepatic biliary ductal dilation. KIDNEYS AND URETERS: Normal renal size and position. No concerning lesion. No perinephric inflammation or hydronephrosis. ADRENAL GLANDS: Non-enlarged. SPLEEN: Slightly enlarged spleen, measuring 13 cm in craniocaudal length. PANCREAS: No discrete lesion or peripancreatic inflammation. BOWEL: No evidence of acute appendicitis. No abnormal stomach or bowel distension. No focal inflammatory change observed. LYMPH NODES: No enlarged mesenteric or retroperitoneal lymph nodes. PERITONEUM: Small amount of fluid and trace gas at gallbladder fossa. No organized, drainable abscess collection demonstrated. VESSELS: Major vessels are normal caliber and unremarkable. URINARY BLADDER: Unremarkable. REPRODUCTIVE ORGANS: Small 2.6 cm left ovarian cyst. ABDOMINAL WALL: Small midline supraumbilical abdominal wall contusion with edema extending just below rectus sheath. No organized abdominal fluid collection. BONES: Intact with no suspicious osseous lesion. CT/CTA Chest W/WO Contrast IMPRESSION: 1. Recent cholecystectomy with small amount of residual fluid and trace gas at gallbladder fossa. Possibly benign but low-grade biliary leakage not entirely excluded. Developing infection also in the differential. Clinical correlation and close follow-up recommended. 2. Mild atelectatic changes with no pulmonary embolus identified. 3. Postsurgical supraumbilical abdominal wall contusion. 4. Small 2.6 cm left ovarian cyst. Individualized dose optimization techniques were used for this CT. at 0448 Reported and signed by: Josue Corona MD Electronically Signed: Josue Corona MD at 4:47 EDT Tel , Service support ,
--- NOTE | 2020-10-24 03:19 | CT_ITS ---
HISTORY: Recent gallbladder surgery. Woke up with abdomen pain and pain up right side of neck. TECHNIQUE: Helically acquired images were obtained of the chest, abdomen, and pelvis following IV contrast. CT angiogram pulmonary embolism protocol utilized for imaging of chest, with MIP and MPR reconstructions. A radiation dose optimization technique was used for this scan. IV Contrast dosage and agent: 100mL Isovue-370 Oral contrast: None. COMPARISON: None FINDINGS: ----Chest: HEART AND PERICARDIUM: Heart size within normal limits. No significant pericardial effusion. VESSELS: Thoracic aorta is not dilated. There is no aortic dissection. Great vessels are patent. No pulmonary arterial filling defects identified. MEDIASTINUM AND VIOLA: No pathologically enlarged mediastinal or hilar lymph nodes. Esophagus is unremarkable. OTHER SOFT TISSUES: Included thyroid gland is unremarkable. No chest wall mass or significant soft tissue swelling. LUNGS AND LARGE AIRWAYS: Mild bilateral lower lobe atelectatic changes. No pulmonary edema or mass. No pneumothorax. PLEURA: No pleural effusion or pleural thickening. BONES: Intact with no suspicious osseous lesion. ----Abdomen/Pelvis: LIVER: Homogeneous. No concerning lesion. GALLBLADDER AND BILIARY TREE: Small amount of ill-defined low attenuation fluid and couple of punctate foci of gas within the gallbladder fossa, status post recent cholecystectomy. No intra- or extrahepatic biliary ductal dilation. KIDNEYS AND URETERS: Normal renal size and position. No concerning lesion. No perinephric inflammation or hydronephrosis. ADRENAL GLANDS: Non-enlarged. SPLEEN: Slightly enlarged spleen, measuring 13 cm in craniocaudal length. PANCREAS: No discrete lesion or peripancreatic inflammation. BOWEL: No evidence of acute appendicitis. No abnormal stomach or bowel distension. No focal inflammatory change observed. LYMPH NODES: No enlarged mesenteric or retroperitoneal lymph nodes. PERITONEUM: Small amount of fluid and trace gas at gallbladder fossa. No organized, drainable abscess collection demonstrated. VESSELS: Major vessels are normal caliber and unremarkable. URINARY BLADDER: Unremarkable. REPRODUCTIVE ORGANS: Small 2.6 cm left ovarian cyst. ABDOMINAL WALL: Small midline supraumbilical abdominal wall contusion with edema extending just below rectus sheath. No organized abdominal fluid collection. BONES: Intact with no suspicious osseous lesion. CT/Abdomen/Pelvis W IV Cont ONLY IMPRESSION: 1. Recent cholecystectomy with small amount of residual fluid and trace gas at gallbladder fossa. Possibly benign but low-grade biliary leakage not entirely excluded. Developing infection also in the differential. Clinical correlation and close follow-up recommended. 2. Mild atelectatic changes with no pulmonary embolus identified. 3. Postsurgical supraumbilical abdominal wall contusion. 4. Small 2.6 cm left ovarian cyst. Individualized dose optimization techniques were used for this CT. at 0447 Reported and signed by: Josue oCrona MD Electronically Signed: Josue Corona MD at 4:46 EDT Tel , Service support ,
[2020-10-24] MEDS: Ondansetron 4 MG/2 ML Vial IV ×2 (03:25→08:51)
[2020-10-24] MEDS: Morphine 4 MG/ML Syringe IV ×6 (03:25→22:24)
[2020-10-24] MEDS: 0.9% Normal Saline 1,000 ML 1000 ML IV (03:25)
--- NOTE | 2020-10-24 03:26 | EX.ED.DYSGE1 ---
HPI History of Present Illness Chief Complaint: Nausea/Vomiting Informant: patient Narrative Narrative: 25-year-old female presents for the evaluation of pain in her diaphragm. She states that she woke up feeling like her diaphragm was in spasm and was going to tear. She states that it was pain under both sides of her lower anterior ribs. She felt like a spasm and so she took one of her Flexeril's and developed nausea and then vomiting. She is status post cholecystectomy 1 week. No fevers. Normal bowel movements. She states that yesterday she had a minor headache swollen tonsils and some neck soreness. PFSH PFS Medical History ADHD Anxiety Asthma Home Medications acetaminophen [Tylenol] 650 mg PO Q4H PRN PRN #0 tab 10/17/20 [Rx Last Taken Unknown] oxycodone 5 - 10 mg PO Q4H PRN PRN 5 Days #30 tab 10/17/20 [Rx Last Taken Unknown] cyclobenzaprine [Flexeril] 10 mg PO TID PRN 10/24/20 [History Last Taken Unknown] hydrocodone-acetaminophen [[place]] 1 tab PO Q4H PRN 10/24/20 [History Last Taken Unknown] Allergy/AdvReac Type Severity Reaction Status Date / Time amoxicillin Allergy Rash Verified 10/15/20 07:26 clavulanic acid Allergy Rash Verified 10/15/20 07:26 [From Augmentin] Penicillins Allergy Rash Verified 10/15/20 07:26 vancomycin Allergy Hives Verified 10/15/20 07:26 Surgical History History of cholecystectomy History of salpingectomy Social History Smoking Status: Current every day smoker tobacco type: e-cigarettes ROS ROS ED Constitutional Constitutional ED: Denies chills or weight loss Eyes Eyes: Denies change in vision or diplopia ENT ENT ED: Denies ear pain, rhinorrhea or sore throat Cardiovascular Cardiovascular: Reports chest pain; Denies orthopnea, palpitations or racing heartbeat Respiratory/Chest Respiratory/Chest: Denies cough, dyspnea or orthopnea Gastrointestinal Gastrointestinal: Reports abdominal pain and nausea; Denies diarrhea or vomiting Genitourinary Genitourinary ED: Denies dysuria, hematuria or urinary frequency Musculoskeletal Musculoskeletal: Reports neck pain; Denies arthralgias or myalgias Integumentary Denies abscess or rash Neurologic Neurologic: Denies headache(s) or weakness Psychiatric Psychiatric: Denies anxiety, depression, suicidal ideation or suicidal thoughts Endocrine Endocrinology: Denies polydipsia, polyphagia or polyuria Allergic/Immunologic Allergic/Immunologic ED: Denies mouth swelling, tongue swelling or urticaria EXAM Physical Exam Const Vital Signs: 10/24/20 03:00 Temperature 97.6 F L Temperature Source Oral Pulse Rate 66 Respiratory Rate 16 Blood Pressure 99/82 H Blood Pressure Mean 87 Pulse Ox 99 Oxygen Delivery Method Room Air Positive well nourished and well developed General Appearance ED: well developed HEENT Reports normocephalic, head/scalp atraumatic and moist mucous membranes Eyes PERRL and EOMs intact bilaterally Neck no lymphadenopathy, supple and no JVD Resp normal respiratory effort and clear to auscultation bilaterally Cardio regular rate, regular rhythm and no murmurs GI GI Narrative: Diffuse tenderness to palpation Palpation: soft and tender; Negative for guarding or rebound tenderness present Back/Spine no CVA tenderness and normal ROM Extremity normal to inspection General Extremety ED: Negative for edema General Extremity: Negative for edema Neuro oriented x3 and CN's II-XII intact bilaterally Sensorium / Orientation: alert Motor Exam: strength 5/5 throughout Psych mental status grossly normal Mood & Affect: Negative for depressed or tearful Skin no rashes or lesions noted and no wounds MDM MDM MDM Narrative Medical decision making narrative: Patient received 2 doses of morphine and later Ativan as well as IV fluids and Zofran. Patient's white blood cell count returns at 19.6. Liver enzymes negative. Glucose 156 test is negative. Because the patient is postoperative is concerned about pulmonary embolism a CTA of the chest was ordered which does not demonstrate any obvious pulmonary embolism. CT the abdomen pelvis was also obtained which demonstrates a small amount of fluid in the gallbladder fossa with a few pockets of air. This is most likely postoperative changes but a biliary leak cannot be ruled out. I spoke with on-call surgeon Dr. Wilkinson. She has requested a HIDA scan and a dose of Protonix. Lab Data Attestation: I reviewed the patient's lab results. Labs: Laboratory Results - last 24 hr 10/24/20 10/24/20 10/24/20 03:15 03:15 03:15 WBC 19.6 H RBC 5.49 H Hgb 12.7 Hct 41.5 MCV 75.6 L MCH 23.1 L MCHC 30.6 L RDW Std Deviation 35.6 RDW Coeff of Christy 13.2 Plt Count 282 MPV 9.8 Immature Gran % (Auto) 0.700 Neut % (Auto) 80.2 H Lymph % (Auto) 11.0 L Yancey % (Auto) 7.0 Eos % (Auto) 0.6 Baso % (Auto) 0.5 Absolute Neuts (auto) 15.8 H Absolute Lymphs (auto) 2.15 Nucleated RBC % 0 Differential Comment SCANNED Platelet Estimate ADEQUATE Sodium 134 L Potassium 4.3 Chloride 102 Carbon Dioxide 23.0 Anion Gap 9 BUN 16 Creatinine 0.81 Estim Creat Clear Calc 79.42 Est GFR (MDRD) Af Amer 109 Est GFR (MDRD) Non-Af 90 BUN/Creatinine Ratio 19.7 Glucose 156 H Calcium 9.0 Total Bilirubin 0.60 AST 22 ALT 40 Alkaline Phosphatase 82 Troponin I High Sens < 3.0 L Total Protein 7.8 Albumin 3.8 Globulin 4.0 Albumin/Globulin Ratio 1.0 Lipase 31 L Serum , Qual NEGATIVE Radiography Diagnostic Testing: Radiology Impression Abdomen/Pelvis CT 10/24/20 03:19 IMPRESSION: 1. Recent cholecystectomy with small amount of residual fluid and trace gas at gallbladder fossa. Possibly benign but low-grade biliary leakage not entirely excluded. Developing infection also in the differential. Clinical correlation and close follow-up recommended. 2. Mild atelectatic changes with no pulmonary embolus identified. 3. Postsurgical supraumbilical abdominal wall contusion. 4. Small 2.6 cm left ovarian cyst. Individualized dose optimization techniques were used for this CT. at 0447 Reported and signed by: Josue Corona MD Electronically Signed: Josue Corona MD at 4:46 EDT Tel , Service support , Chest CTA 10/24/20 03:19 IMPRESSION: 1. Recent cholecystectomy with small amount of residual fluid and trace gas at gallbladder fossa. Possibly benign but low-grade biliary leakage not entirely excluded. Developing infection also in the differential. Clinical correlation and close follow-up recommended. 2. Mild atelectatic changes with no pulmonary embolus identified. 3. Postsurgical supraumbilical abdominal wall contusion. 4. Small 2.6 cm left ovarian cyst. Individualized dose optimization techniques were used for this CT. at 0448 Reported and signed by: Josue Corona MD Electronically Signed: Josue Corona MD at 4:47 EDT Tel , Service support , Discharge Plan Triage Chief Complaint: Nausea/Vomiting ED Provider: Darryn Hong Dx/Rx/DC Orders Clinical Impression: Leukocytosis, Abdominal pain, acute Prescriptions: No Action acetaminophen [Tylenol] 325 mg Tablet 650 mg PO Q4H PRN PRN (Reason: P/F) Qty: 0 RF: 0 oxycodone 5 mg Tablet 5 - 10 mg PO Q4H PRN PRN (Reason: Pain Score 4-10) 5 Days Qty: 30 RF: 0 cyclobenzaprine [Flexeril] 10 mg Tablet 10 mg PO TID PRN (Reason: Muscle Spasm) RF: 0 hydrocodone-acetaminophen [[place]] 5-325 mg Tablet 1 tab PO Q4H PRN (Reason: Pain) RF: 0 Primary Care Provider: Jignesh Gutierrez Referrals: Jignesh Gutierrez MD [Primary Care Provider] -
[2020-10-24 03:46] LABS: Internal QC Validated? YES +Cl - CLEAR BKGD; Pregnancy, Serum, hCG Quali. NEGATIVE Negative
[2020-10-24 03:50] LABS: Absolute Lymphocyte Count 2.15 X10^3/uL (0.83-4.51); Absolute Neutrophil Count 15.8 X10^3/uL (2.0-7.7); Basophil# 0.09 X10^3/uL; Basophil% 0.5 % (0-1); Differential Indicated SCAN CRITERIA MET; Eosinophil# 0.11 X10^3/uL; Eosinophils% 0.6 % (0-5); Hematocrit 41.5 % (37-47); Hemoglobin 12.7 g/dL (12.0-15.0); Lymphocyte # 2.15 X10^3/ul (0.83-4.51); Mean Corp Hgb Conc 30.6 g/dL (32-36); Mean Corpuscular Hgb 23.1 pg (27.0-32.0); Mean Corpuscular Volume 75.6 fL (81-99); Mean Platelet Vol. 9.8 fl (6.2-12.0); Monocyte# 1.37 X10^3/uL; NRBC Flagged by Analyzer 0 % (0-5); Neutrophil # 15.75 X10^3/uL (2.7-7.7); Neutrophil % 80.2 % (47-70); POSITIVE COUNT YES; Platelet Count 282 K/mm3 (150-450); RBC Distribution Width CV 13.2 % (11.6-14.6); RBC Distribution Width SD 35.6 fl (35.1-43.9); Red Blood Count 5.49 M/mm3 (4.2-5.4); White Blood Count 19.6 K/mm3 (4.4-11.0)
[2020-10-24 03:55] LABS: AST(SGOT) 22 U/L (15-37); Alanine Aminotransfer ALT/SGPT 40 U/L (13-56); Albumin, Serum 3.8 g/dL (3.2-5.0); Alkaline Phosphatase 82 U/L (45-117); Anion Gap 9 (5-15); BUN 16 mg/dL (7-18); BUN/Creat Ratio 19.7 RATIO (10-20); Chloride 102 mmol/L (98-107); Creatinine, Serum 0.81 mg/dL (0.55-1.02); EST Glomerular Filtration Rate 90 mL/min (>60); Est Glom Filt Rate - Afr Amer 109 mL/min (>60); Estimated Creatinine Clearance 79.42 ml/min; Glucose 156 mg/dL (74-106); Lipase 31 U/L (73-393); Potassium 4.3 mmol/L (3.5-5.1); Protein, Total 7.8 g/dL (6.4-8.2); Sodium Level 134 mmol/L (136-145); Troponin-I HS < 3.0 pg/mL (3.0-53.7)
[2020-10-24 04:20] LABS: Differential Comment SCANNED
[2020-10-24 04:21] LABS: Platelet Estimate ADEQUATE (ADEQ)
--- NOTE | 2020-10-24 05:46 | NM_ITS ---
Nuclear medicine HIDA scan Indication: Status post cholecystectomy last week, Facet pain today COMPARISON STUDIES : NM - None. CR - Not available for review at this time. CT - CT 10/24/2020 MR - Not available for review at this time. Technique: 5.6 mCi of technetium 99m labeled mebrofenin was injected intravenously followed by standard imaging. Findings: There is homogenous activity throughout the liver. Beginning on image 28, there is amorphous isotope along the inferior right liver edge that continues to accumulate on later images. There is nonvisualization of the common duct/bowel. Absent gallbladder activity compatible with cholecystectomy. NM/Hepatobilliary Imaging IMPRESSION: 1. Bile leak. 2. Nonvisualization of the common duct, patency cannot be determined. Electronically Signed: Jose Luis Cerna MD ([place]) at 8:35 EDT , Service support ,
[2020-10-24] MEDS: LORazepam 2 MG/ML Syringe 1 MG IV (06:00)
[2020-10-24 08:46] LABS: Mucous, Urine 0 SEEN /hpf (<or=2+); White Blood Cells 0 SEEN /hpf (0-5)
[2020-10-24 08:47] LABS: Color, Urine Yellow (Yellow); Glucose, Dipstick Normal (Normal); Ketone-Dipstick 50 mg/dl (Negative); Leukocyte Esterase-Dipstick Negative /ul (Negative); Nitrite-Dipstick Negative (Negative); Occult Blood-Urine 10 /ul (Negative); Protein-Dipstick 15 mg/dl (Negative); Urine Bilirubin Dipstick Negative (Negative); Urine Clarity Clear (Clear); Urine Urobilinogen Normal (Normal)
[2020-10-24 09:04] LABS: Bacteria RARE /hpf (None Seen); Red Blood Cells-Urine 0-5 SEEN /hpf (0-5); Squamous Epithelial Cells - UA 5-10 SEEN /hpf (5-10)
--- NOTE | 2020-10-24 09:13 | NURSING ---
MED SURG BILE [facility]
--- NOTE | 2020-10-24 09:58 | HP.PCM_ITS ---
HPI - General General Date of Admission: 10/24/20 HPI Narrative CATRACHO FREED, is a 25 F who presents s/p laparoscopic cholecystectomy with Dr. Hawley on 10/16/20. Patient was discharged on POD #1. She noted RUQ soreness upon discharge. She denies nausea, vomiting. She was tolerating a diet. She noted a sore throat on Wednesday and yesterday had soreness in her neck muscles. She states her son had jumped on her abdomen yesterday causing pain. She stated in the middle of the night last night, she had woke up from pain in her right and left upper abdomen, nausea and vomiting. She notes not having an appetite since surgery. She denies fever, chills. She denies this similar pain prior to surgery. She states this does not feel like a gallbladder attack as she does not have back pain. She notes incisional soreness. She was also noting shortness of breath. She had a CTA which demonstrated: IMPRESSION: 1. Recent cholecystectomy with small amount of residual fluid and trace gas at gallbladder fossa. Possibly benign but low-grade biliary leakage not entirely excluded. Developing infection also in the differential. Clinical correlation and close follow-up recommended. 2. Mild atelectatic changes with no pulmonary embolus identified. 3. Postsurgical supraumbilical abdominal wall contusion. 4. Small 2.6 cm left ovarian cyst. Individualized dose optimization techniques were used for this CT. CT of the ab/pel demonstrated: IMPRESSION: 1. Recent cholecystectomy with small amount of residual fluid and trace gas at gallbladder fossa. Possibly benign but low-grade biliary leakage not entirely excluded. Developing infection also in the differential. Clinical correlation and close follow-up recommended. 2. Mild atelectatic changes with no pulmonary embolus identified. 3. Postsurgical supraumbilical abdominal wall contusion. 4. Small 2.6 cm left ovarian cyst. Individualized dose optimization techniques were used for this CT. HIDA scan demonstrated: IMPRESSION: 1. Bile leak. 2. Nonvisualization of the common duct, patency cannot be determined. Patient noted for a WBC of 19.6. Liver panel unremarkable. [facility] Medical History ADHD Anxiety Asthma Home Medications acetaminophen [Tylenol] 650 mg PO Q4H PRN PRN #0 tab 10/17/20 [Rx Last Taken Unknown] oxycodone 5 - 10 mg PO Q4H PRN PRN 5 Days #30 tab 10/17/20 [Rx Last Taken Unknown] cyclobenzaprine [Flexeril] 10 mg PO TID PRN 10/24/20 [History Last Taken Unknown] hydrocodone-acetaminophen [Rippey] 1 tab PO Q4H PRN 10/24/20 [History Last Taken Unknown] Allergy/AdvReac Type Severity Reaction Status Date / Time amoxicillin Allergy Rash Verified 10/15/20 07:26 clavulanic acid Allergy Rash Verified 10/15/20 07:26 [From Augmentin] Penicillins Allergy Rash Verified 10/15/20 07:26 vancomycin Allergy Hives Verified 10/15/20 07:26 Surgical History History of cholecystectomy History of salpingectomy Social History Smoking Status: Current every day smoker tobacco type: e-cigarettes ROS Constitutional Constitutional: Reports systems reviewed and no addt'l complaints, except as documented Eyes Eyes: Reports systems reviewed and no addt'l complaints, except as documented ENT HEENT: Reports systems reviewed and no addt'l complaints, except as documented Cardiovascular Cardiovascular: Reports systems reviewed and no addt'l complaints, except as documented Respiratory/Chest Respiratory/Chest: Reports systems reviewed and no addt'l complaints, except as documented Gastrointestinal Gastrointestinal: Reports systems reviewed and no addt'l complaints, except as documented Genitourinary Genitourinary: Reports systems reviewed and no addt'l complaints, except as documented Musculoskeletal Musculoskeletal: Reports systems reviewed and no addt'l complaints, except as documented Integumentary Integumentary: Reports systems reviewed and no addt'l complaints, except as d ocumented Neurologic Neurologic: Reports systems reviewed and no addt'l complaints, except as documented Psychiatric Psychiatric: Reports systems reviewed and no addt'l complaints, except as documented Endocrine Endocrinology: Reports systems reviewed and no addt'l complaints, except as documented Hematologic/Lymphatic Hematologic/Lymphatic: Reports systems reviewed and no addt'l complaints, except as documented Allergic/Immunologic Allergic/Immunologic: Reports systems reviewed and no addt'l complaints, except as documented Vital Signs Vital Signs Vital Signs: 10/24/20 03:00 10/24/20 06:06 10/24/20 08:54 Temperature 97.6 F L Temperature Source Oral Pulse Rate 66 89 93 Respiratory Rate 16 16 14 Blood Pressure 99/82 H 118/61 Blood Pressure Mean 87 80 Pulse Ox 99 97 96 Oxygen Delivery Method Room Air Room Air Room Air 10/24/20 09:24 Temperature 98 F Temperature Source Temporal Pulse Rate 93 Respiratory Rate 14 Blood Pressure 118/60 Blood Pressure Mean 79 Pulse Ox 96 Oxygen Delivery Method Room Air Weight Weight: 193 lb 9.054 oz Body Mass Index (BMI) 36.6 Physical Exam Const alert, oriented x3 and no apparent distress HEENT normocephalic and head/scalp atraumatic Eyes EOMs intact bilaterally Neck General: normal visual inspection Lymph Lymphatic: no lymphadenopathy noted Chest inspection of chest normal Resp normal respiratory effort Auscultation: clear to auscultation bilaterally Cardio regular rate and regular rhythm GI Inspection: abdominal distention, incision intact and healing well and central obesity Auscultation: hypoactive bowel sounds Palpation: tender LUQ and RUQ no CVA tenderness Back/Spine no CVA tenderness Extremity normal to inspection Skin no rashes or lesions noted Neuro CN's II-XII intact bilaterally and no focal motor deficits Psych mental status grossly normal and thought process normal Results Lab / Micro Data Result Diagrams: 10/24/20 03:15 10/24/20 03:15 Labs: Laboratory Results - last 24 hr 10/24/20 03:15: WBC 19.6 H, RBC 5.49 H, Hgb 12.7, Hct 41.5, MCV 75.6 L, MCH 23.1 L, MCHC 30.6 L, RDW Std Deviation 35.6, RDW Coeff of Christy 13.2, Plt Count 282, MPV 9.8, Immature Gran % (Auto) 0.700, Neut % (Auto) 80.2 H, Lymph % (Auto) 11.0 L, [place] % (Auto) 7.0, Eos % (Auto) 0.6, Baso % (Auto) 0.5, Absolute Neuts (auto) 15.8 H, Absolute Lymphs (auto) 2.15, Nucleated RBC % 0, Differential Comment SCANNED, Platelet Estimate ADEQUATE 10/24/20 03:15: Sodium 134 L, Potassium 4.3, Chloride 102, Carbon Dioxide 23.0, Anion Gap 9, BUN 16, Creatinine 0.81, Estim Creat Clear Calc 79.42, Est GFR (MDRD) Af Amer 109, Est GFR (MDRD) Non-Af 90, BUN/Creatinine Ratio 19.7, Glucose 156 H, Calcium 9.0, Total Bilirubin 0.60, AST 22, ALT 40, Alkaline Phosphatase 82, Troponin I High Sens < 3.0 L, Total Protein 7.8, Albumin 3.8, Globulin 4.0, Albumin/Globulin Ratio 1.0, Lipase 31 L 10/24/20 03:15: Serum , Qual NEGATIVE 10/24/20 08:34: Urine Color Yellow, Urine Clarity Clear, Urine pH 5.0, Ur Specific [place] 1.010, Urine Protein 15 H, Urine Glucose (UA) Normal, Urine Ketones 50 H, Urine Occult Blood 10 H, Urine Nitrite Negative, Urine Bilirubin Negative, Urine Urobilinogen Normal, Ur Leukocyte Esterase Negative, Urine RBC 0-5 SEEN, Urine WBC 0 SEEN, Ur Squamous Epith Cells 5-10 SEEN, Urine Bacteria RARE, Urine Mucus 0 SEEN Radiology Impression Abdomen/Pelvis CT 10/24/20 03:19 IMPRESSION: 1. Recent cholecystectomy with small amount of residual fluid and trace gas at gallbladder fossa. Possibly benign but low-grade biliary leakage not entirely excluded. Developing infection also in the differential. Clinical correlation and close follow-up recommended. 2. Mild atelectatic changes with no pulmonary embolus identified. 3. Postsurgical supraumbilical abdominal wall contusion. 4. Small 2.6 cm left ovarian cyst. Individualized dose optimization techniques were used for this CT. at 0447 Reported and signed by: Josue Corona MD Electronically Signed: Josue Corona MD at 4:46 EDT Tel , Service support , Chest CTA 10/24/20 03:19 IMPRESSION: 1. Recent cholecystectomy with small amount of residual fluid and trace gas at gallbladder fossa. Possibly benign but low-grade biliary leakage not entirely excluded. Developing infection also in the differential. Clinical correlation and close follow-up recommended. 2. Mild atelectatic changes with no pulmonary embolus identified. 3. Postsurgical supraumbilical abdominal wall contusion. 4. Small 2.6 cm left ovarian cyst. Individualized dose optimization techniques were used for this CT. at 0448 Reported and signed by: Josue Corona MD Electronically Signed: Josue Corona MD at 4:47 EDT Tel , Service support , Hepatobiliary Scan Nuclear Medicine 10/24/20 05:46 IMPRESSION: 1. Bile leak. 2. Nonvisualization of the common duct, patency cannot be determined. Electronically Signed: Jose Luis Cerna MD ([place]) at 8:35 EDT , Service support , Assessment & Plan Assessment/Plan (1) Bile leak: PLAN: I am following this patient in conjunction with Dr. Wilkinson. We will admit patient to med/surg for pain control. Dr. Hawley will plan to perform an Endoscopic retrograde cholangiopancreatography with possible stent placement tomorrow morning. Procedure details, risks and benefits have been explained. Patient verbally understands and agrees with the plan. NPO after midnight. Thank you for allowing us to participate in this patient's care. (2) Abdominal pain, acute: PLAN: HIDA scan demonstrates bile leak Charges/Coding Visit Charges Office Visits / Consults: [id number] IP Consult L3
[2020-10-24] MEDS: 0.9% Normal Saline 1,000 ML 100 ML IV ×2 (10:18→23:46)
[2020-10-24] MEDS: metroNIDAZOLE 500 MG/100 ML BAG 100 MG IV ×2 (10:37→20:48)
[2020-10-24] MEDS: Ciprofloxacin 400 MG/200 ML BAG 200 MG IV ×2 (11:55→22:24)
[2020-10-24] MEDS: oxyCODONE 5 MG Tablet 10 MG PO ×2 (14:17→20:40)
[2020-10-24] MEDS: Acetaminophen 325 MG Tablet 650 MG PO ×2 (14:17→20:41)
[2020-10-24] MEDS: 0.9% Saline Lock 10 ML Syringe IV ×2 (17:03→22:24)
[2020-10-25] VITALS (13 sets, daily range): BP systolic 105–145; BP diastolic 53–94; PULSE 86–111; RESP 16–18; TEMP 36.7–37.6; O2SAT 91–98; BMI 36.3
[2020-10-25] MEDS: oxyCODONE 5 MG Tablet 10 MG PO ×2 (01:51→12:54)
[2020-10-25] MEDS: Morphine 4 MG/ML Syringe IV ×3 (05:11→15:32)
[2020-10-25] MEDS: 0.9% Saline Lock 10 ML Syringe IV ×4 (05:11→19:32)
[2020-10-25] MEDS: metroNIDAZOLE 500 MG/100 ML BAG 100 MG IV ×3 (05:12→23:17)
[2020-10-25 05:29] LABS: Absolute Lymphocyte Count 1.26 X10^3/uL (0.83-4.51); Absolute Neutrophil Count 6.8 X10^3/uL (2.0-7.7); Basophil# 0.03 X10^3/uL; Basophil% 0.3 % (0-1); Eosinophil# 0.17 X10^3/uL; Eosinophils% 1.9 % (0-5); Hematocrit 32.6 % (37-47); Hemoglobin 9.9 g/dL (12.0-15.0); Lymphocyte # 1.26 X10^3/ul (0.83-4.51); Mean Corp Hgb Conc 30.4 g/dL (32-36); Mean Corpuscular Hgb 23.2 pg (27.0-32.0); Mean Corpuscular Volume 76.3 fL (81-99); Mean Platelet Vol. 8.5 fl (6.2-12.0); Monocyte# 0.69 X10^3/uL; Monocyte% 7.7 % (0-10); NRBC Flagged by Analyzer 0 % (0-5); Neutrophil % 75.5 % (47-70); Platelet Count 227 K/mm3 (150-450); RBC Distribution Width CV 13.2 % (11.6-14.6); RBC Distribution Width SD 36.3 fl (35.1-43.9); Red Blood Count 4.27 M/mm3 (4.2-5.4)
[2020-10-25 05:44] LABS: ALB/GLOB Ratio 0.8 RATIO (0.9-2.4); AST(SGOT) 11 U/L (15-37); Alanine Aminotransfer ALT/SGPT 26 U/L (13-56); Albumin, Serum 2.7 g/dL (3.2-5.0); Alkaline Phosphatase 75 U/L (45-117); Anion Gap 5 (5-15); BUN 9 mg/dL (7-18); BUN/Creat Ratio 16.8 RATIO (10-20); Calcium,Total 7.9 mg/dL (8.5-10.1); Chloride 105 mmol/L (98-107); Creatinine, Serum 0.54 mg/dL (0.55-1.02); EST Glomerular Filtration Rate 146 mL/min (>60); Est Glom Filt Rate - Afr Amer 176 mL/min (>60); Estimated Creatinine Clearance 119.13 ml/min; Globulin 3.4 g/dL (2.2-4.2); Glucose 81 mg/dL (74-106); Potassium 3.7 mmol/L (3.5-5.1); Protein, Total 6.1 g/dL (6.4-8.2); Sodium Level 137 mmol/L (136-145)
--- NOTE | 2020-10-25 06:23 | NURSING ---
Pt taken to surgery at this time with [employer]
--- NOTE | 2020-10-25 07:25 | RAD_ITS ---
PROCEDURE: FLUOROSCOPIC GUIDANCE FOR ERCP DATE OF EXAMINATION: 10/26/2020 INDICATION: Female, 25 years old. Status post cholecystectomy, bile leak, guidance for biliary stent placement 3 fluoroscopic images. 66.5 seconds of fluoroscopy time. TECHNIQUE: Fluoroscopy was provided for ERCP procedure. Several digital spot images were obtained. Initial images demonstrate introduction of a guidewire into the common bile duct in a retrograde fashion with subsequent injection of contrast. Contrast is seen to opacify the common bile duct, as well as the intrahepatic biliary radicals. Immediate extravasation of contrast by way of the cystic duct. Subsequent placement of biliary stent with mild degree of contrast seen within the duodenum. RAD/ERCP Biliary Only IMPRESSION: Bile leak. Biliary stent insertion. Electronically Signed: Jose Luis Cerna MD ([place]) at 16:01 EDT , Service support ,
--- NOTE | 2020-10-25 07:29 | PCM.PN.SRG ---
Subjective Subjective Patient still have right upper quadrant pain Objective Data Objective Data Vital Signs: Vital Signs Temp Pulse Resp BP Pulse Ox 98.8 F 94 16 105/53 L 96 10/25/20 05:00 10/25/20 05:00 10/25/20 05:00 10/25/20 05:00 10/25/20 05:00 Oxygen Delivery Method Room Air Weight: 192 lb 7.417 oz Body Mass Index (BMI) 36.3 Intake & Output: Intake and Output for Last 24 Hours 10/23/20 10/24/20 10/25/20 23:59 23:59 23:59 Intake Total 3941.67 / 3941.67 663.33 / 663.33 Balance 3941.67 / 3941.67 663.33 / 663.33 Lab / Micro Data Result Diagrams: 10/25/20 05:13 10/25/20 05:13 Labs: Laboratory Results - last 24 hr 10/24/20 08:34: Urine Color Yellow, Urine Clarity Clear, Urine pH 5.0, Ur Specific [place] 1.010, Urine Protein 15 H, Urine Glucose (UA) Normal, Urine Ketones 50 H, Urine Occult Blood 10 H, Urine Nitrite Negative, Urine Bilirubin Negative, Urine Urobilinogen Normal, Ur Leukocyte Esterase Negative, Urine RBC 0-5 SEEN, Urine WBC 0 SEEN, Ur Squamous Epith Cells 5-10 SEEN, Urine Bacteria RARE, Urine Mucus 0 SEEN 10/25/20 05:13: WBC 9.0, RBC 4.27, Hgb 9.9 L, Hct 32.6 L, MCV 76.3 L, MCH 23.2 L, MCHC 30.4 L, RDW Std Deviation 36.3, RDW Coeff of Christy 13.2, Plt Count 227, MPV 8.5, Immature Gran % (Auto) 0.600, Neut % (Auto) 75.5 H, Lymph % (Auto) 14.0 L, [place] % (Auto) 7.7, Eos % (Auto) 1.9, Baso % (Auto) 0.3, Absolute Neuts (auto) 6.8, Absolute Lymphs (auto) 1.26, Nucleated RBC % 0 10/25/20 05:13: Sodium 137, Potassium 3.7, Chloride 105, Carbon Dioxide 27.0, Anion Gap 5, BUN 9, Creatinine 0.54 L, Estim Creat Clear Calc 119.13, Est GFR (MDRD) Af Amer 176, Est GFR (MDRD) Non-Af 146, BUN/Creatinine Ratio 16.8, Glucose 81, Calcium 7.9 L, Total Bilirubin 0.60, AST 11 L, ALT 26, Alkaline Phosphatase 75, Total Protein 6.1 L, Albumin 2.7 L, Globulin 3.4, Albumin/Globulin Ratio 0.8 L Radiography Diagnostic Testing: Radiology Impression Hepatobiliary Scan Nuclear Medicine 10/24/20 05:46 IMPRESSION: 1. Bile leak. 2. Nonvisualization of the common duct, patency cannot be determined. Electronically Signed: Jose Luis Cerna MD ([place]) at 8:35 EDT , Service support , Physical Exam Const oriented x3 and no apparent distress Resp normal respiratory effort Cardio regular rate and regular rhythm GI Palpation: tender RUQ Assessment & Plan Assessment/Plan (1) Bile leak: PLAN: I reviewed the patient's imaging. There is minimal fluid on the CT scan but on the HIDA scan it did show postoperative bile leak. I reviewed all this information with the patient. I discussed ERCP with stent placement with the patient. I discussed the risks of the procedure including wound to bleeding, infection, perforation of the bile duct or bowel, pancreatitis. I discussed stent placement with need to remove stent in the future with an additional procedure. The patient understands all the risks as well to proceed. Pete Hawley MD Pager: [facility] [address] [place] [address], [address] [place] [address] Office:
--- NOTE | 2020-10-25 08:11 | OP.ERCP_ITS ---
Patient Name: Gloria Ayala Procedure Date: 10/25/2020 6:33 AM Date of : 1995 Age: 25 Procedure: ERCP Indications: Bile leak Providers: Pete Hawley MD Medicines: Monitored Anesthesia Care Patient Profile: This is a 25 year old female. Refer to note in patient chart for documentation of history and physical. Complications: No immediate complications. Procedure: Pre-Anesthesia Assessment: - Prior to the procedure, a History and Physical was performed, and patient medications and allergies were reviewed. The patient's tolerance of previous anesthesia was also reviewed. The risks and benefits of the procedure and the sedation options and risks were discussed with the patient. All questions were answered, and informed consent was obtained. Prior Anticoagulants: The patient has taken no previous anticoagulant or antiplatelet agents. After reviewing the risks and benefits, the patient was deemed in satisfactory condition to undergo the procedure. After obtaining informed consent, the scope was passed under direct vision. Throughout the procedure, the patient's blood pressure, pulse, and oxygen saturations were monitored continuously. The [id number] endoscope was introduced through the mouth, and advanced to the duodenum and used to inject contrast into the bile duct. The ERCP was accomplished without difficulty. The patient tolerated the procedure well. Scope In: 7:53:01 AM Scope Out: 8:00:49 AM Total Procedure Duration Time 0 hours 7 minutes 48 seconds Findings: A wire was passed into the biliary tree. The sphincterotome was passed over the guidewire and the bile duct was then deeply cannulated. Contrast was injected. I personally interpreted the bile duct images. Extravasation of contrast originating from the cystic duct was observed. Biliary sphincterotomy was made with a sphincterotome using ERBE electrocautery. There was no post-sphincterotomy bleeding. To discover objects, the biliary tree was swept with a 12 mm balloon starting at the bifurcation. One 7 Fr by 5 cm plastic stent with a single external flap and a single internal flap was placed into the common bile duct. Bile flowed through the stent. The stent was in good position. Impression: - A bile leak was found. - A biliary sphincterotomy was performed. - The biliary tree was swept. - One plastic stent was placed into the common bile duct. Recommendation: - Return patient to hospital [facility] for ongoing care. - Observe patient's clinical course. Procedure Code(s): --- Professional --- 77834, Endoscopic retrograde cholangiopancreatography (ERCP); with placement of endoscopic stent into biliary or pancreatic duct, including pre- and post-dilation and guide wire passage, when performed, including sphincterotomy, when performed, each stent Diagnosis Code(s): --- Professional --- K83.9, Disease of biliary tract, unspecified K83.8, Other specified diseases of biliary tract CPT copyright 2017 [employer]. All rights reserved. The codes documented in this report are preliminary and upon shank piece tacker review may be revised to meet current compliance requirements. Pete Hawley MD 10/25/2020 8:11:01 AM This report has been signed electronically. Number of Addenda: 0 Note Initiated On: 10/25/2020 6:33 AM
--- NOTE | 2020-10-25 08:11 | OP.CCLET_ITS ---
10/25/2020 Jignesh Gutierrez Re : ERCP procedure for Gloria Zimmermanr Brenda This procedure was performed on Sunday, October 25, 2020. My impressions and recommendations are as follows: Impressions : - A bile leak was found. - A biliary sphincterotomy was performed. - The biliary tree was swept. - One plastic stent was placed into the common bile duct. Recommendations : - Return patient to hospital [facility] for ongoing care. - Observe patient's clinical course. My findings are described in the full procedure note, which is enclosed. If I can be of further assistance, please feel free to contact me at Doctor phone number(s): , Work: . Sincerely, Pete Hawley MD 10/25/2020 8:11:01 AM This report has been signed electronically.
[2020-10-25] MEDS: Lactated Ringers 1,000 ML 100 ML IV (08:15)
[2020-10-25] MEDS: Ciprofloxacin 400 MG/200 ML BAG 200 MG IV ×2 (10:12→21:52)
--- NOTE | 2020-10-25 13:19 | PN.SURG_ITS ---
Subjective Subjective Pt had ERcP this AM with stent placement, pt c/o upper abdominal pain more on the left, on clears, states she can't go home on clear Objective Data Objective Data Vital Signs: Vital Signs Temp Pulse Resp BP Pulse Ox 98.0 F 100 18 145/94 H 92 10/25/20 13:43 10/25/20 13:43 10/25/20 13:43 10/25/20 13:43 10/25/20 13:43 Oxygen Flow Rate (L/min) 2 Oxygen Delivery Method Room Air Weight: 192 lb 7.417 oz Body Mass Index (BMI) 36.3 Intake & Output: Intake and Output for Last 24 Hours 10/23/20 10/24/20 10/25/20 23:59 23:59 23:59 Intake Total 3941.67 / 3941.67 2695.00 / 2695.00 Output Total 1200 / 1200 Balance 3941.67 / 3941.67 1495.00 / 1495.00 Lab / Micro Data Result Diagrams: 10/25/20 05:13 10/25/20 05:13 Labs: Laboratory Results - last 24 hr 10/25/20 05:13: WBC 9.0, RBC 4.27, Hgb 9.9 L, Hct 32.6 L, MCV 76.3 L, MCH 23.2 L , MCHC 30.4 L, RDW Std Deviation 36.3, RDW Coeff of Christy 13.2, Plt Count 227, MPV 8.5, Immature Gran % (Auto) 0.600, Neut % (Auto) 75.5 H, Lymph % (Auto) 14.0 L, [place] % (Auto) 7.7, Eos % (Auto) 1.9, Baso % (Auto) 0.3, Absolute Neuts (auto) 6.8, Absolute Lymphs (auto) 1.26, Nucleated RBC % 0 10/25/20 05:13: Sodium 137, Potassium 3.7, Chloride 105, Carbon Dioxide 27.0, Anion Gap 5, BUN 9, Creatinine 0.54 L, Estim Creat Clear Calc 119.13, Est GFR (MDRD) Af Amer 176, Est GFR (MDRD) Non-Af 146, BUN/Creatinine Ratio 16.8, Glucose 81, Calcium 7.9 L, Total Bilirubin 0.60, AST 11 L, ALT 26, Alkaline Phosphatase 75, Total Protein 6.1 L, Albumin 2.7 L, Globulin 3.4, Albumin/Globulin Ratio 0.8 L 10/25/20 17:15: Lipase 76 Physical Exam Const oriented x3 and no apparent distress Resp normal respiratory effort Cardio regular rate and regular rhythm GI Palpation: tender LUQ and RUQ Assessment & Plan Assessment/Plan (1) Bile leak: (2) S/P ERCP: PLAN: Will continue clears until pain improves, continue pain control with morphine/oxyir Will continue to monitor Dr. Guo will be rounding this weekend.
[2020-10-25] MEDS: HYDROmorphone 0.5 MG/0.5 ML SYRINGE IV ×3 (16:16→19:32)
[2020-10-25] MEDS: 0.9% Normal Saline 1,000 ML 100 ML IV (16:18)
--- NOTE | 2020-10-25 17:15 | CASEMGMT ---
VERONICA ASHTON Assessment: Face to Face with pt for initial transition planning/care coordination assessment. RN DAISHA introduced self and role at [facility], pt voices understanding and consents to assessment. Pt is A/O x4 and answers all questions appropriately at this time. Pt is getting labs drawn at this time but states to go ahead with assessment. Care providers, pharmacy, and demographics verified/updated. Admitting Dx: bile leak PCP:Brenda Specialists: Pt denies having any specialists. Preferred Pharmacy: [facility] if in hospital. Insurance: Hamzah Townsend Prescription Benefit: yes LW/HPOA: Pt denies having LW/DPOA. LNOK: Ana Ayala, mother; Joe Dewitt, sister Living Arrangements: Pt lvies in a two story house with 3 steps to enter with her son and boyfriend. Pt is I in ADL's and denies concerns at home. Transportation: Pt drives self and denies concerns with transportation. DME/HHC/SNF: Pt denies having any DME, previous HHC or SNF. Pt states no concerns with going home at time of dc. Pt states no further concerns/needs. CM to follow. Advised pt to ask CM if any further question/concerns/needs arise, voices understanding. Pt Goal: Home Plan: Home
[2020-10-25 17:41] LABS: Lipase 76 U/L (73-393)
--- NOTE | 2020-10-25 17:51 | CT_ITS ---
We are attempting to reach an attending provider to discuss findings. An addendum with communication details will be sent when the communication is complete. EXAM: CT ABDOMEN AND PELVIS WITH INTRAVENOUS CONTRAST : 1995 CLINICAL INDICATION: abdominal pain -- IV po contrast TECHNIQUE: Helically acquired images were obtained of the abdomen and pelvis with intravenous contrast. This CT exam was performed using one or more of the following dose reduction techniques: automated exposure control, adjustment of the mA and/or kV according to patient size, and/or use of iterative reconstruction technique. This report was created using [employer] technology. CONTRAST: IV 100mL [id number]-[id number] COMPARISON: 10/24/2020 FINDINGS: LOWER THORAX: There is consolidation in both lower lobes which has increased from the reference exam and may represent atelectasis or pneumonia. No cardiomegaly. No significant pericardial effusion. ABDOMEN: LIVER: Unremarkable. Homogeneous. No focal mass. GALLBLADDER AND BILE DUCTS: There is gas and fluid in the gallbladder fossa. The patient is status post cholecystectomy. No intra- or extrahepatic biliary ductal dilation. PANCREAS: Unremarkable. No focal cystic or solid mass. SPLEEN: Unremarkable. Normal size without focal cystic or solid mass. ADRENALS: Unremarkable. No nodules. KIDNEYS AND URETERS: Unremarkable. Normal renal size and position. No hydronephrosis. STOMACH AND BOWEL: Unremarkable. No stomach or bowel distention. No focal inflammatory change. PELVIS: APPENDIX: No evidence of acute appendicitis. BLADDER: Unremarkable. REPRODUCTIVE: There is a low-density mass in the left adnexa which is stable compatible with a cyst. ABDOMEN and PELVIS: INTRAPERITONEAL SPACE: There is a small amount of free fluid anterior to the liver margin. There is small amount of free air seen within the upper abdomen. Since reference examination there is now a biliary stent in place. There is inflammation and fluid seen within the right paracolic gutter. There is a mild to moderate amount of free fluid seen within the pelvis. BONES/JOINTS: Unremarkable. No suspicious lytic or blastic abnormality. SOFT TISSUES: Unremarkable. No discrete abdominal or pelvic wall hernia. VASCULATURE: Unremarkable. Abdominal aorta is non-dilated. LYMPH NODES: Unremarkable. No enlarged lymph nodes. CT/Abdomen/Pelvis WITH Contrast IMPRESSION: 1. Since reference examination a biliary stent has been placed. There is increasing gas and fluid in the gallbladder fossa possibly due to ERCP and previous bile leak. There is also a mild to moderate amount of free fluid in the pelvis possibly due to a bile leak. This was not present on the previous exam. 2. Interval development of bilateral lower lobe consolidation which merits and atelectasis or pneumonia greater on the left than on the right. 3. Small amount of free air in the upper abdomen likely due to recent ERCP or cholecystectomy. There are no abnormal loops of bowel or evidence of obstruction. The possibility of a bowel perforation however cannot be totally excluded but is less likely. Individualized dose optimization techniques were used for this CT. at 2050 Reported and signed by: Jose Miguel Hernandes MD Electronically Signed: Jose Miguel Hernandes MD at 20:49 EDT Tel , Service support ,
[2020-10-25] MEDS: Ondansetron 4 MG/2 ML Vial IV (19:32)
[2020-10-26] MEDS: oxyCODONE 5 MG Tablet 10 MG PO ×2 (01:59→08:17)
[2020-10-26] MEDS: Acetaminophen 325 MG Tablet 650 MG PO ×2 (01:59→08:18)
[2020-10-26 02:00] VITALS: BP 101/63; PULSE 94; RESP 16; TEMP 36.9; O2SAT 96
[2020-10-26] MEDS: 0.9% Normal Saline 1,000 ML 100 ML IV (04:30)
[2020-10-26] MEDS: metroNIDAZOLE 500 MG/100 ML BAG 100 MG IV (06:16)
[2020-10-26 06:18] VITALS: BP 101/56; PULSE 95; RESP 16; TEMP 36.8; O2SAT 96
[2020-10-26 06:34] LABS: Absolute Lymphocyte Count 1.24 X10^3/uL (0.83-4.51); Absolute Neutrophil Count 11.5 X10^3/uL (2.0-7.7); Basophil# 0.02 X10^3/uL; Basophil% 0.1 % (0-1); Hematocrit 31.2 % (37-47); Hemoglobin 9.9 g/dL (12.0-15.0); Lymphocyte # 1.24 X10^3/ul (0.83-4.51); Mean Corp Hgb Conc 31.7 g/dL (32-36); Mean Corpuscular Hgb 23.5 pg (27.0-32.0); Mean Corpuscular Volume 73.9 fL (81-99); Mean Platelet Vol. 8.9 fl (6.2-12.0); Monocyte# 0.96 X10^3/uL; NRBC Flagged by Analyzer 0 % (0-5); Neutrophil # 11.48 X10^3/uL (2.7-7.7); Neutrophil % 83.2 % (47-70); Platelet Count 286 K/mm3 (150-450); RBC Distribution Width CV 13.1 % (11.6-14.6); RBC Distribution Width SD 34.8 fl (35.1-43.9); Red Blood Count 4.22 M/mm3 (4.2-5.4); White Blood Count 13.8 K/mm3 (4.4-11.0)
[2020-10-26 07:16] LABS: AST(SGOT) 10 U/L (15-37); Alanine Aminotransfer ALT/SGPT 21 U/L (13-56); Albumin, Serum 2.4 g/dL (3.2-5.0); Alkaline Phosphatase 110 U/L (45-117); Anion Gap 6 (5-15); BUN 6 mg/dL (7-18); BUN/Creat Ratio 13.4 RATIO (10-20); Bilirubin, Direct 0.22 mg/dL (0.00-0.30); Calcium,Total 8.1 mg/dL (8.5-10.1); Chloride 106 mmol/L (98-107); Creatinine, Serum 0.45 mg/dL (0.55-1.02); EST Glomerular Filtration Rate 179 mL/min (>60); Est Glom Filt Rate - Afr Amer 217 mL/min (>60); Estimated Creatinine Clearance 142.96 ml/min; Globulin 3.7 g/dL (2.2-4.2); Glucose 104 mg/dL (74-106); Potassium 3.7 mmol/L (3.5-5.1); Protein, Total 6.1 g/dL (6.4-8.2); Sodium Level 136 mmol/L (136-145)
[2020-10-26 09:25] VITALS: O2SAT 96
--- NOTE | 2020-10-26 10:18 | PN.SURG_ITS ---
Subjective Subjective Patient feels much better today. Pain is significantly improved and would like to go home Objective Data Objective Data Abdomen is soft. Vital Signs: Vital Signs Temp Pulse Resp BP Pulse Ox 98.3 F 95 16 101/56 L 96 10/26/20 06:18 10/26/20 06:18 10/26/20 06:18 10/26/20 06:18 10/26/20 09:25 Oxygen Flow Rate (L/min) 2 Oxygen Delivery Method Room Air Weight: 192 lb 7.417 oz Body Mass Index (BMI) 36.3 Intake & Output: Intake and Output for Last 24 Hours 10/24/20 10/25/20 10/26/20 23:59 23:59 23:59 Intake Total 3941.67 / 3941.67 3703.33 / 3703.33 1003.33 / 1003.33 Output Total 1500 / 1500 Balance 3941.67 / 3941.67 2203.33 / 2203.33 1003.33 / 1003.33 Lab / Micro Data Result Diagrams: 10/26/20 05:55 10/26/20 05:55 Labs: Laboratory Results - last 24 hr 10/25/20 17:15: Lipase 76 10/26/20 05:55: WBC 13.8 H, RBC 4.22, Hgb 9.9 L, Hct 31.2 L, MCV 73.9 L, MCH 23.5 L, MCHC 31.7 L, RDW Std Deviation 34.8 L, RDW Coeff of Christy 13.1, Plt Count 286, MPV 8.9, Immature Gran % (Auto) 0.700, Neut % (Auto) 83.2 H, Lymph % (Auto) 9.0 L, Carroll % (Auto) 7.0, Eos % (Auto) 0.0, Baso % (Auto) 0.1, Absolute Neuts (auto) 11.5 H, Absolute Lymphs (auto) 1.24, Nucleated RBC % 0 10/26/20 05:55: Sodium 136, Potassium 3.7, Chloride 106, Carbon Dioxide 24.0, Anion Gap 6, BUN 6 L, Creatinine 0.45 L, Estim Creat Clear Calc 142.96, Est GFR (MDRD) Af Amer 217, Est GFR (MDRD) Non-Af 179, BUN/Creatinine Ratio 13.4, Glucose 104, Calcium 8.1 L, Total Bilirubin 0.60, Direct Bilirubin 0.22, AST 10 L, ALT 21, Alkaline Phosphatase 110, Total Protein 6.1 L, Albumin 2.4 L, Globulin 3.7 Radiography Diagnostic Testing: Radiology Impression Abdomen/Pelvis CT 10/25/20 17:51 IMPRESSION: 1. Since reference examination a biliary stent has been placed. There is increasing gas and fluid in the gallbladder fossa possibly due to ERCP and previous bile leak. There is also a mild to moderate amount of free fluid in the pelvis possibly due to a bile leak. This was not present on the previous exam. 2. Interval development of bilateral lower lobe consolidation which merits and atelectasis or pneumonia greater on the left than on the right. 3. Small amount of free air in the upper abdomen likely due to recent ERCP or cholecystectomy. There are no abnormal loops of bowel or evidence of obstruction. The possibility of a bowel perforation however cannot be totally excluded but is less likely. Individualized dose optimization techniques were used for this CT. at 2050 Reported and signed by: Jose Miguel Hernandes MD Electronically Signed: Jose Miguel Hernandes MD at 20:49 EDT Tel , Service support , ADDENDUM: 10/25/202121 IMPRESSION: 1. Since reference examination a biliary stent has been placed. There is increasing gas and fluid in the gallbladder fossa possibly due to ERCP and previous bile leak. There is also a mild to moderate amount of free fluid in the pelvis possibly due to a bile leak. This was not present on the previous exam. 2. Interval development of bilateral lower lobe consolidation which merits and atelectasis or pneumonia greater on the left than on the right. 3. Small amount of free air in the upper abdomen likely due to recent ERCP or cholecystectomy. There are no abnormal loops of bowel or evidence of obstruction. The possibility of a bowel perforation however cannot be totally excluded but is less likely. Individualized dose optimization techniques were used for this CT. at 2050 Reported and signed by: Jose Miguel Hernandes MD N.B. : The above Results were Read Back by Jose Miguel Hernandes MD to Grace Rodriguez RN, and understanding confirmed on 10/25/2020 21:15:11 (ET). Electronically Signed: Jose Miguel Hernandes MD at 20:49 EDT Tel , Service support , Assessment & Plan Assessment/Plan (1) S/P ERCP: PLAN: Will DC home today.
[2020-10-26] MEDS: Ciprofloxacin 400 MG/200 ML BAG 200 MG IV (10:59)
--- NOTE | 2020-10-26 11:23 | EX.PCM.DISCH ---
Discharge Instructions Procedure General Surgery Diet Discharge Diet: Light diet - advance as tolerated (If you have questions about your diet instructions, please talk to your doctor.) Activity Discharge Activity: May Not Drive (for 1 week or while taking narcotic pain medicine.) May shower in (days): 1 Lifting Restrictions: 10 pounds Dressing / Incision Call your doctor if your incision/area has: Continuous Slow Oozing, Sudden Increased Bleeding, Increased Pain/ Swelling, Increased Redness and Foul Smelling Discharge Call your doctor if you observe: Fever of 101 or Higher Suture Line Care: Avoid Pulling/Pushing and Avoid Pinching/Bending Additional Dressing/Incision Instructions:: Change or remove dressing in 4 days. Leave steri-strips in place for 1 week. Follow Up Care Please Follow Up With: Radha Kemp PA-C When: Call office to schedule an appointment to be seen in about 10 days. Test Results: Test results from this visit will be discussed in further detail at your follow-up appointment, if applicable. Discharge Plan Admission Admit Date/Time: 10/25/20 07:29 Attending Provider: Dori Wilkinson Primary Care Provider: Jignesh Gutierrez Instructions Patient Instructions: ERCP, ERCP Dc Discharge Orders/Prescriptions Prescriptions: New ciprofloxacin HCl [Cipro] 500 mg tablet 500 mg PO BID Qty: 10 RF: 0 metronidazole [Flagyl] 500 mg tablet 500 mg PO Q8H Qty: 15 RF: 0 Continued acetaminophen [Tylenol] 325 mg Tablet 650 mg PO Q4H PRN PRN (Reason: P/F) Qty: 0 RF: 0 oxycodone 5 mg Tablet 5 - 10 mg PO Q4H PRN PRN (Reason: Pain Score 4-10) 5 Days Qty: 30 RF: 0 cyclobenzaprine 10 mg Tablet 10 mg PO TID PRN (Reason: Muscle Spasm) RF: 0 hydrocodone-acetaminophen 5-325 mg Tablet 1 tab PO Q4H PRN (Reason: Pain) RF: 0 Referrals / Follow Up: Pete Hawley MD [STAFF PHYSICIAN] - Jignesh Gutierrez MD [Primary Care Provider] - Disposition Discharge Orders: Discharge Patient (Routine); Ordered 10/26/20 Ordered By: Dr. Darryn Guo
[2020-10-26 12:25] VITALS: BP 112/65; PULSE 93; RESP 16; TEMP 36.6; O2SAT 98
--- NOTE | 2020-10-28 14:47 | CASEMGMT ---
VERONICA ASHTON Discharge Follow Up Phone Call: TONY: 10 Strata: 3 Call Date: 10/28/20 Discharge Date: 10/26/20 Time of Call: 1543 Duration: 3 min Admitting Dx: bile leak VERONICA ASHTON completed follow up phone call after recent hospitalization. Pt states she is doing well but sore. She had her rx delivered to room prior to dc. She has an appt with on Wednesday and has not had a chance to set up her PCP appt. Pt denies questions or concerns regarding her dc instructions or medications. Pt has no further questions or concerns at this time.
== END 2020-10-26 12:39 | disposition home or self-care (01) | DRG 446 ==
LOC: ED 10:33 → MS3 10:33
PROVIDERS: Emergency Medicine; Physician Assistant; Surgery; Admitting Provider Surgery; Emergency Provider Emergency Medicine; PCP Family Medicine; Visit Provider Surgery
PROC: 0F798ZZ Dilation of Common Bile Duct, Via Natural or Artificial Opening Endoscopic (ICD-10-PCS; CPT 43260; principal; 2020-10-25 07:00)
DX: K83.8 Other specified diseases of biliary tract (principal); D72.829 Elevated white blood cell count, unspecified; Z90.49 Acquired absence of other specified parts of digestive tract; F90.9 Attention-deficit hyperactivity disorder, unspecified type; J45.909 Unspecified asthma, uncomplicated; F17.290 Nicotine dependence, other tobacco product, uncomplicated
CPT/HCPCS: 36415; 71275; 74177; 74328; 76000; 78226; 80048; 80053; 80076; 81001; 83690; 84484; 84703; 85025; 93005; 99251; 99285; A9537; J7030; J7120; Q9967; A4216; G0463; J0744; J2405

== ENCOUNTER 2020-12-19 10:58 | Day surgery (SDC) | payer OTHER, MEDICAID, SELFPAY ==
[2020-10-30 09:11] VITALS: BMI 36.3
[2020-12-19] MEDS: Lactated Ringers 1,000 ML 100 ML IV (11:10)
--- NOTE | 2020-12-19 11:24 | HP.PCM.SX_ITS ---
HPI - General HPI Narrative CATRACHO FREED, is a 25 F who presents for ERCP and stent removal. Patient had laparoscopic cholecystectomy with subsequent bile leak back in October and reports she has been doing well until about 2 days ago where she started having right back pain. [facility] Medical History (Updated 12/18/20 @ 09:34 by Tomeka Ching) ADHD Alcohol use Anemia Anxiety Asthma Depression Gastric reflux History of IBS Smoker Wears contact lenses Wears glasses Home Medications acetaminophen [Tylenol] 650 mg PO Q4H PRN PRN #0 tab 10/17/20 [Rx Last Taken Unknown] Allergy/AdvReac Type Severity Reaction Status Date / Time amoxicillin Allergy Rash Verified 12/18/20 09:28 clavulanic acid Allergy Rash Verified 12/18/20 09:28 [From Augmentin] Penicillins Allergy Rash Verified 12/18/20 09:28 vancomycin Allergy Hives Verified 12/18/20 09:28 Surgical History (Updated 12/18/20 @ 09:34 by Tomeka Ching) History of cholecystectomy History of ERCP History of salpingectomy Hx of wisdom tooth extraction Social History Smoking Status: Current every day smoker tobacco type: cigarettes and e- cigarettes ROS Constitutional Constitutional: Denies anorexia or fatigue ENT HEENT: Denies abnormal hearing Cardiovascular Cardiovascular: Denies chest pain Respiratory/Chest Respiratory/Chest: Denies cough or dyspnea Gastrointestinal Gastrointestinal: Denies abdominal pain, melena, nausea or vomiting Genitourinary Genitourinary: Denies change in urinary stream Musculoskeletal Musculoskeletal: Denies abnormal gait Integumentary Integumentary: Denies jaundice Neurologic Neurologic: Denies abnormal gait Vital Signs Vital Signs Vital Signs: Weight Body Mass Index (BMI) 36.3 Physical Exam Const oriented x3 and no apparent distress Resp normal respiratory effort Cardio regular rate GI soft to palpation and non-tender Assessment & Plan Assessment/Plan (1) Bile leak: PLAN: I discussed ERCP with stent removal. I explained that I would remove the stent and perform a cholangiogram to check for further leak and if there was one I would replace the stent with a fresh stent and if there were no leaks and she would need no subsequent treatment. I discussed ERCP in detail the patient as well as the risks of bleeding, infection, pancreatitis or perforation of the bile duct or bowel. Patient understands and is willing to proceed. Pete Hawley MD Pager: [facility] [address] [place] [address], [address] [place] [address] Office:
[2020-12-19 11:27] VITALS: BP 110/83; PULSE 87; RESP 16; TEMP 36.6; O2SAT 98; BMI 35.6
--- NOTE | 2020-12-19 12:00 | RAD_ITS ---
STUDY: ERCP REASON FOR EXAM: Female, 25 years old. ERCP WITH STENT REMOVAL FLUOROSCOPY TIME (if supplied): ( 134 seconds ) minutes/seconds. 2 images were submitted. TECHNIQUE: An ERCP was performed by the surgeon. Imaging was submitted. COMPARISON: Comparison is made with prior study dated 10/25/2020. FINDINGS: Contrast was injected. There is no evidence of bile leak at this time. The biliary stent was removed. RAD/ERCP Biliary Only IMPRESSION: Removal of the biliary stent. Electronically Signed: Randal Ny MD at 15:22 EDT , Service support ,
--- NOTE | 2020-12-19 12:28 | OP.ERCP_ITS ---
Patient Name: Gloria Ayala Procedure Date: 12/19/2020 11:58 AM Date of : 1995 Age: 25 Procedure: ERCP Indications: Bile leak Providers: Pete Hawley MD Medicines: General Anesthesia Patient Profile: This is a 25 year old female. Refer to note in patient chart for documentation of history and physical. Complications: No immediate complications. Estimated blood loss: None Procedure: Pre-Anesthesia Assessment: - Prior to the procedure, a History and Physical was performed, and patient medications and allergies were reviewed. The patient's tolerance of previous anesthesia was also reviewed. The risks and benefits of the procedure and the sedation options and risks were discussed with the patient. All questions were answered, and informed consent was obtained. Prior Anticoagulants: The patient has taken no previous anticoagulant or antiplatelet agents. After reviewing the risks and benefits, the patient was deemed in satisfactory condition to undergo the procedure. After obtaining informed consent, the scope was passed under direct vision. Throughout the procedure, the patient's blood pressure, pulse, and oxygen saturations were monitored continuously. The [id number] endoscope was introduced through the mouth, and advanced to the duodenum and used to inject contrast into the bile duct. The ERCP was accomplished without difficulty. The patient tolerated the procedure well. Scope In: 12:13:45 PM Scope Out: 12:20:25 PM Total Procedure Duration Time 0 hours 6 minutes 40 seconds Findings: One stent was removed from the common bile duct using a snare. A 0.035 inch x 260 cm straight Dreamwire was passed into the biliary tree. 12 mm ballooon was placed in CBD and cholangiogram was performed. No cystic duct bile leak noted. Several sweeps performed with balloon. Guidewire and balloon removed. Impression: - One stent was removed from the common bile duct. Recommendation: - Discharge patient to home. - Resume previous diet. - Continue present medications. - Return to my office PRN. Procedure Code(s): --- Professional --- 20513, Endoscopic retrograde cholangiopancreatography (ERCP); with removal of foreign body(s) or stent(s) from biliary/pancreatic duct(s) Diagnosis Code(s): --- Professional --- Z46.59, Encounter for fitting and adjustment of other gastrointestinal appliance and device K83.8, Other specified diseases of biliary tract CPT copyright 2017 [employer]. All rights reserved. The codes documented in this report are preliminary and upon blocklayer review may be revised to meet current compliance requirements. Pete Hawley MD 12/19/2020 12:27:44 PM This report has been signed electronically. Number of Addenda: 0 Note Initiated On: 12/19/2020 11:58 AM
--- NOTE | 2020-12-19 12:28 | OP.CCLET_ITS ---
12/19/2020 Jignesh Gutierrez Re : ERCP procedure for Gloria Ayala Dear Brenda This procedure was performed on December. My impressions and recommendations are as follows: Impressions : - One stent was removed from the common bile duct. Recommendations : - Discharge patient to home. - Resume previous diet. - Continue present medications. - Return to my office PRN. My findings are described in the full procedure note, which is enclosed. If I can be of further assistance, please feel free to contact me at Doctor phone number(s): , Work: . Sincerely, Pete Hawley MD 12/19/2020 12:27:44 PM This report has been signed electronically.
[2020-12-19 12:30] VITALS: BP 110/83; BP 94/50; PULSE 90; RESP 16; TEMP 36.1; O2SAT 98
[2020-12-19 12:45] VITALS: BP 102/76; BP 110/83; PULSE 85; RESP 16; O2SAT 100
[2020-12-19 12:49] VITALS: BP 104/73; BP 110/83; PULSE 85; RESP 16; TEMP 36.3; O2SAT 100
[2020-12-19 13:33] VITALS: BP 110/83
== END 2020-12-19 13:33 ==
LOC: EN 11:02 → AC 11:02
PROVIDERS: PCP Family Medicine; Referring Provider Family Medicine; Visit Provider Surgery
PROC: (CPT 43260; principal; 2020-12-19 11:30)
DX: Z46.59 Encounter for fitting and adjustment of other gastrointestinal appliance and device (principal); K83.8 Other specified diseases of biliary tract; F90.9 Attention-deficit hyperactivity disorder, unspecified type; K58.9 Irritable bowel syndrome, unspecified; J45.909 Unspecified asthma, uncomplicated; Z90.49 Acquired absence of other specified parts of digestive tract; F17.210 Nicotine dependence, cigarettes, uncomplicated
CPT/HCPCS: 43275; 74328; 76000; J7120; J2405